=== PATIENT | male | born 1950 ===

== ENCOUNTER → 2017-10-01 13:51 | Outpatient (CLI) | payer OTHER, MEDICARE, SELFPAY ==
[2017-10-01 15:45] LABS: Add Manual Diff / Slide Review NO; Eosinophils Percent Auto 1.2 % (2-4); Hematocrit 40.2 % (41-53); Hemoglobin 13.8 g/dL (13.5-17.5); Lymphocytes Percent Auto 25.8 % (25-40); Mean Corpuscular HGB Conc 34.3 % (30-36); Mean Corpuscular Hemoglobin 30.6 PG (26-34); Mean Corpuscular Volume 89.3 fL (80-100); Monocytes Percent Auto 7.7 % (3-14); Neutrophils Absolute Auto 2300 /uL (3000-5900); Neutrophils Percent Auto 64.3 % (50-75); Platelet Count 250 X10^3/uL (150-400); Red Cell Distribution Width 12.8 % (11.6-14.8); White Blood Cell Count 3.6 X10^3/uL (4.5-11.0)
[2017-10-01 16:32] LABS: Alanine Aminotransferase 42 IU/L (21-72); Albumin 4.4 g/dL (3.5-5.0); Albumin Globulin Ratio 1.4 (1.0-2.8); Alkaline Phosphatase 31 U/L (38-126); Aspartate Aminotransferase 38 IU/L (17-59); Bilirubin Total 0.5 mg/dL (0.2-1.3); Blood Urea Nitrogen 16 mg/dL (9-20); Calcium 9.2 mg/dL (8.4-10.2); Carbon Dioxide 32 mmol/L (22-32); Chloride 100 mmol/L (98-107); Cholesterol 210 mg/dL (140-199); Estimated Glomerular Filt Rate > 60.0 mL/min (>60); Globulin 3.1 g/dL (1.7-4.1); Glucose 92 mg/dL (80-110); HDL Cholesterol 42 mg/dL (40-60); HEMOLYSIS < 15 (0-50); LDL Cholesterol Calculated 135 mg/dL (<100); Potassium 4.5 mmol/L (3.4-5.1); Sodium 142 mmol/L (137-145); Total Protein 7.5 g/dL (6.3-8.2); Triglycerides 163 mg/dL (35-150)
[2017-10-01 16:56] LABS: Thyroid Stimulating Hormone 1.21 uIU/mL (0.47-4.68)
[2017-10-01 16:57] LABS: Prostate Specific Antigen Scrn 0.595 ng/mL (0.1-4.0)
== END ==
PROVIDERS: PCP Family Medicine; Visit Provider Family Medicine
DX: E03.9 Hypothyroidism, unspecified (principal); Z12.5 Encounter for screening for malignant neoplasm of prostate
CPT/HCPCS: 36415; 80053; 80061; 84443; 85025; G0103

== ENCOUNTER → 2018-09-15 12:32 | Outpatient (CLI) | payer OTHER, MEDICARE, SELFPAY ==
[2018-09-15 13:20] LABS: Add Manual Diff / Slide Review NO; Basophils Absolute Auto 0 /uL (0-100); Basophils Percent Auto 0.9 % (0-2); Eosinophils Absolute Auto 200 /uL (0-450); Eosinophils Percent Auto 3.5 % (2-4); Hematocrit 40.2 % (41-53); Hemoglobin 13.7 g/dL (13.5-17.5); Lymphocytes Absolute Auto 1200 /uL (1100-4500); Lymphocytes Percent Auto 26.7 % (25-40); Mean Corpuscular Hemoglobin 30.8 PG (26-34); Mean Corpuscular Volume 90.5 fL (80-100); Monocytes Absolute Auto 400 /uL (0-900); Neutrophils Absolute Auto 2600 /uL (1500-7000); Neutrophils Percent Auto 58.9 % (50-75); Platelet Count 227 X10^3/uL (150-400); Red Blood Cell Count 4.44 X10^6/uL (4.5-5.9); Red Cell Distribution Width 13.6 % (11.6-14.8); White Blood Cell Count 4.4 X10^3/uL (4.5-11.0)
[2018-09-15 13:40] LABS: Alanine Aminotransferase 49 IU/L (21-72); Albumin 4.4 g/dL (3.5-5.0); Albumin Globulin Ratio 1.4 (1.0-2.8); Alkaline Phosphatase 30 U/L (38-126); BUN Creatinine Ratio 16.7 (6-22); Bilirubin Total 0.5 mg/dL (0.2-1.3); Blood Urea Nitrogen 15 mg/dL (9-20); Carbon Dioxide 28 mmol/L (22-32); Chloride 103 mmol/L (98-107); Cholesterol 207 mg/dL (140-199); Estimated Glomerular Filt Rate > 60.0 mL/min (>60); Globulin 3.2 g/dL (1.7-4.1); Glucose 105 mg/dL (80-110); HDL Cholesterol 29 mg/dL (40-60); Sodium 140 mmol/L (137-145); Total Protein 7.6 g/dL (6.3-8.2); Triglycerides 433 mg/dL (35-150)
[2018-09-15 13:47] LABS: Aspartate Aminotransferase 57 IU/L (17-59); HEMOLYSIS 61 (0-50); Potassium 4.3 mmol/L (3.4-5.1)
[2018-09-15 14:05] LABS: Prostate Specific Antigen Scrn 1.42 ng/mL (0.1-4.0)
[2018-09-15 14:25] LABS: Thyroid Stimulating Hormone 1.62 uIU/mL (0.47-4.68)
== END ==
PROVIDERS: PCP Family Medicine; Visit Provider Family Medicine
DX: Z12.5 Encounter for screening for malignant neoplasm of prostate (principal); Z13.1 Encounter for screening for diabetes mellitus; Z13.29 Encounter for screening for other suspected endocrine disorder; Z13.6 Encounter for screening for cardiovascular disorders; E78.2 Mixed hyperlipidemia
CPT/HCPCS: 36415; 80053; 80061; 84443; 85025; G0103

== ENCOUNTER → 2018-09-24 14:26 | Outpatient (CLI) | payer OTHER, MEDICARE, SELFPAY ==
--- NOTE | 2018-09-24 14:29 | DI.RAD.S_ITS ---
PROCEDURE: XR HIP W PEL IF DONE LT MIN 4V INDICATIONS: Pain TECHNIQUE: AP pelvis with lateral view(s) of the bilateral hip(s). COMPARISON: None. FINDINGS: Bones: No fractures or dislocations. Pelvic ring appears intact. No suspicious bony lesions. Soft tissues: The visualized bowel gas pattern is normal. No suspicious soft tissue calcifications. IMPRESSION: Mild degenerative hip joint osteoarthritis is symmetric bilaterally, and no trauma is found. Dictated by: Anibal Lima M.D. on 09/24/2018 at 16:34 Approved by: Anibal Lmia M.D. on 09/24/2018 at 16:34
--- NOTE | 2018-09-24 14:29 | DI.RAD.S_ITS ---
PROCEDURE: XR LUMBAR SPINE MIN 4V INDICATIONS: Pain TECHNIQUE: 5 views of the lumbar spine were acquired. COMPARISON: None. FINDINGS: Bones: 5 nonrib-bearing vertebrae are present. There is normal bony alignment. No vertebral body compression fractures. No suspicious bony lesions. Soft tissues: Overlying bowel gas pattern is normal. No suspicious soft tissue calcifications. Oblique images: No pars defects. IMPRESSION: Only a slight degree of degenerative disc disease is seen along the lumbosacral spine, and facet osteoarthritis is mild until the L4-L5 level is reached where it is mild to moderate and allows slight anterolisthesis of L4 on L5 (grade 1). No compression fracture seen. No spinal or foraminal stenosis is found. Dictated by: Anibal Lima M.D. on 09/24/2018 at 16:17 Approved by: Anibal Lima M.D. on 09/24/2018 at 16:18
== END ==
PROVIDERS: PCP Family Medicine; Visit Provider Family Medicine
DX: M54.9 Dorsalgia, unspecified (principal); M47.816 Spondylosis without myelopathy or radiculopathy, lumbar region; M43.16 Spondylolisthesis, lumbar region; M16.0 Bilateral primary osteoarthritis of hip
CPT/HCPCS: 72110; 73522

== ENCOUNTER → 2020-06-01 15:29 | Outpatient (CLI) | payer OTHER, MEDICARE, SELFPAY ==
[2020-06-01] MEDS: COVID-19 VACC #1, MRNA(MOD) 100 MCG/0.5 ML VIAL IM (15:38)
== END ==
PROVIDERS: PCP Registered Nurse; Visit Provider Internal Medicine
DX: Z23 Encounter for immunization (principal)
CPT/HCPCS: 0011A; 91301

== ENCOUNTER → 2020-06-29 14:43 | Outpatient (CLI) | payer OTHER, MEDICARE, SELFPAY ==
[2020-06-29 15:08] LABS: Add Manual Diff / Slide Review NO; Basophils Absolute Auto 0 /uL (0-100); Basophils Percent Auto 0.4 % (0-2); Eosinophils Absolute Auto 0 /uL (0-450); Hematocrit 40.9 % (41-53); Hemoglobin 13.9 g/dL (13.5-17.5); Lymphocytes Absolute Auto 1200 /uL (1100-4500); Lymphocytes Percent Auto 25.4 % (25-40); Mean Corpuscular HGB Conc 33.9 % (30-36); Mean Corpuscular Hemoglobin 31.4 PG (26-34); Mean Corpuscular Volume 92.7 fL (80-100); Monocytes Absolute Auto 300 /uL (0-900); Monocytes Percent Auto 6.8 % (3-14); Neutrophils Absolute Auto 3200 /uL (1500-7000); Neutrophils Percent Auto 66.4 % (50-75); Platelet Count 234 X10^3/uL (150-400); Red Blood Cell Count 4.41 X10^6/uL (4.5-5.9); Red Cell Distribution Width 13.9 % (11.6-14.8); White Blood Cell Count 4.8 X10^3/uL (4.5-11.0)
[2020-06-29 17:05] LABS: Alanine Aminotransferase 26 IU/L (<50); Albumin 4.5 g/dL (3.5-5.0); Albumin Globulin Ratio 1.5 (1.0-2.8); Alkaline Phosphatase 33 U/L (38-126); Aspartate Aminotransferase 35 IU/L (17-59); BUN Creatinine Ratio 15.6 (6-22); Bilirubin Total 0.5 mg/dL (0.2-1.3); Blood Urea Nitrogen 14 mg/dL (9-20); Calcium 9.5 mg/dL (8.4-10.2); Carbon Dioxide 30 mmol/L (22-32); Chloride 103 mmol/L (98-107); Cholesterol 186 mg/dL (140-199); Estimated Glomerular Filt Rate > 60.0 mL/min (>60); Globulin 3.1 g/dL (1.7-4.1); Glucose 109 mg/dL (80-110); HDL Cholesterol 48 mg/dL (40-60); HEMOLYSIS < 15 (0-50); LDL Cholesterol Calculated 119 mg/dL (<100); Potassium 4.2 mmol/L (3.4-5.1); Sodium 139 mmol/L (137-145); Total Protein 7.6 g/dL (6.3-8.2); Triglycerides 96 mg/dL (35-150)
== END ==
PROVIDERS: PCP Registered Nurse; Referring Provider Registered Nurse; Visit Provider Registered Nurse
DX: E78.2 Mixed hyperlipidemia (principal); F32.9 Major depressive disorder, single episode, unspecified; F41.9 Anxiety disorder, unspecified
CPT/HCPCS: 36415; 80053; 80061; 85025

== ENCOUNTER → 2020-06-29 15:00 | Outpatient (CLI) | payer OTHER, MEDICARE, SELFPAY ==
[2020-06-29] MEDS: COVID-19 VACC #2, MRNA(MOD) 100 MCG/0.5 ML VIAL IM (15:12)
== END ==
PROVIDERS: PCP Registered Nurse; Visit Provider Internal Medicine
DX: Z23 Encounter for immunization (principal)
CPT/HCPCS: 0012A; 91301

== ENCOUNTER → 2020-09-02 12:37 | Outpatient (CLI) | payer OTHER, MEDICARE, SELFPAY ==
--- NOTE | 2020-09-02 12:40 | DI.US.S_ITS ---
PROCEDURE: US ABDOMEN LIMITED INDICATIONS: palpable mass/possible lipoma of right/mid abdo TECHNIQUE: Real-time focused scanning was performed of the abdomen, with image documentation. COMPARISON: None. FINDINGS: Isoechoic subcutaneous soft tissue mass corresponding to the palpable abnormalities with the largest measuring 3.2 x 1.1 x 1.8 cm. Doppler assessment demonstrates no internal flow. IMPRESSION: Probable soft tissue lipoma; however differential would include both benign and malignant etiologies. If indicated, contrast-enhanced soft tissue MRI could be performed for further assessment. Dictated by: Tim Velasquez [facility] Interpreted: Sebastian Calles MD on 09/02/2020 at 13:22 Transcribed by: RABIA on 09/02/2020 at 13:23 Approved by: Sebastian Calles M.D. on 09/02/2020 at 13:44
== END ==
PROVIDERS: PCP Registered Nurse; Referring Provider Registered Nurse; Visit Provider Registered Nurse
DX: D17.9 Benign lipomatous neoplasm, unspecified (principal)
CPT/HCPCS: 76705

== ENCOUNTER → 2020-09-14 12:31 | Outpatient (CLI) | payer OTHER, MEDICARE, SELFPAY ==
--- NOTE | 2020-09-14 12:32 | DI.MRI.S_ITS ---
PROCEDURE: MR ABDOMEN WO/W CON INDICATIONS: abdominal mass TECHNIQUE: Coronal HASTE, axial 2D FLASH in- and yqa-ie-lcmod; axial breath-hold T2 FSE. Dynamic axial VIBE during the administration of contrast; post-contrast coronal VIBE or 2D FLASH with fat saturation from the hepatic dome to the iliac crests. Optional diffusion weighted imaging and ADC may be performed. COMPARISON: [facility], US, US ABDOMEN LIMITED, 09/02/2020, 12:00. [facility], CT, CT ABDOMEN PELVIS WITH CONTRAST, 04/19/2018, 16:53. [facility], CT, CT ABDOMEN PELVIS WITH CONTRAST, 03/18/2017, 12:24. FINDINGS: Image quality: Good. Lung bases: No basal pleural effusions. Heart size is normal. Solid organs: Liver is normal in size. No focal lesion seen. Gallbladder is unremarkable. Biliary system is non dilated. Pancreas is normal in morphology. Spleen is normal in size and enhancement. No adrenal nodules. No hydronephrosis seen. Nodes and vessels: No retroperitoneal or mesenteric adenopathy by size criteria. Aorta and inferior vena cava are normal in size. Bowel and peritoneum: Unenhanced bowel loops are normal in caliber. No free fluid. Bones and soft tissues: Skin marker overlies the right upper paramedian abdomen, (5/21). No mass is seen. No fluid collection. The ribs appear symmetric. No ventral hernias. Bone marrow is normal in overall signal. IMPRESSION: No suspicious enhancement in the region of the abdominal wall in the right upper abdomen. Suspected lipoma is not well seen. Targeted ultrasound may be beneficial for Dictated by: Dm Orellana M.D. on 09/14/2020 at 14:59 Approved by: Dm Orellana M.D. on 09/14/2020 at 15:07
== END ==
PROVIDERS: PCP Registered Nurse; Referring Provider Registered Nurse; Visit Provider Registered Nurse
DX: D17.79 Benign lipomatous neoplasm of other sites (principal)
CPT/HCPCS: 74183

== ENCOUNTER → 2020-09-26 14:25 | Outpatient (CLI) | payer OTHER, MEDICARE, SELFPAY ==
[2020-09-26 15:40] LABS: Add Manual Diff / Slide Review NO; Basophils Absolute Auto 0 /uL (0-100); Basophils Percent Auto 0.2 % (0-2); Eosinophils Absolute Auto 0 /uL (0-450); Eosinophils Percent Auto 0.6 % (2-4); Hematocrit 41.5 % (41-53); Hemoglobin 14.3 g/dL (13.5-17.5); Lymphocytes Absolute Auto 800 /uL (1100-4500); Lymphocytes Percent Auto 17.4 % (25-40); Mean Corpuscular HGB Conc 34.4 % (30-36); Monocytes Absolute Auto 400 /uL (0-900); Monocytes Percent Auto 8.5 % (3-14); Neutrophils Absolute Auto 3200 /uL (1500-7000); Neutrophils Percent Auto 73.3 % (50-75); Platelet Count 211 X10^3/uL (150-400); Red Blood Cell Count 4.46 X10^6/uL (4.5-5.9); Red Cell Distribution Width 14.3 % (11.6-14.8); White Blood Cell Count 4.4 X10^3/uL (4.5-11.0)
[2020-09-26 16:15] LABS: Free T4, Direct Thyroxine 0.96 ng/dL (0.78-2.19)
[2020-09-26 16:29] LABS: Thyroid Stimulating Hormone 0.297 uIU/mL (0.47-4.68)
== END ==
PROVIDERS: PCP Registered Nurse; Referring Provider Registered Nurse; Visit Provider Registered Nurse
DX: D64.9 Anemia, unspecified (principal); F41.8 Other specified anxiety disorders
CPT/HCPCS: 36415; 84439; 84443; 85025

== ENCOUNTER → 2020-10-24 15:09 | Outpatient (CLI) | payer OTHER, MEDICARE, SELFPAY ==
[2020-10-24 16:11] LABS: COVID19 -Nasal RAPID Negative (Negative)
== END ==
PROVIDERS: PCP Registered Nurse; Visit Provider Surgery
DX: Z20.822 Contact with and (suspected) exposure to COVID-19 (principal)
CPT/HCPCS: 87635; C9803

== ENCOUNTER 2020-10-25 12:09 | Day surgery (SDC) | payer OTHER, MEDICARE, SELFPAY ==
[2020-10-20 13:46] VITALS: BMI 24.7
[2020-10-25] VITALS (9 sets, daily range): BP systolic 85–155; BP diastolic 21–89; PULSE 47–100; RESP 14–20; TEMP 36.6–36.9; O2SAT 94–100; BMI 24.7
--- NOTE | 2020-10-25 | PATH_ITS ---
[facility] Accession Number: [id number] . 01 Material submitted: . flank - LEFT FLANK SOFT TISSUE MASSES . 01 Diagnosis: Left Flank, Excision: Mature adipose tissue, consistent with lipoma; see note. . Note: There are focal increased vessels associated with mature adipose tissue; therefore, an additional consideration includes a benign angiolipoma variant. MRV 10/28/2020 1026 Local . 01 Electronically signed: . Adilson Child MD, Dermatopathologist NPI- [id number] . 01 Gross description: . The specimen is received in formalin, labeled soft tissue mass and consists of multiple gooden-yellow fragments of adipose tissue measuring 6.0 x 6.0 x 2.5 cm in aggregate. Sectioning reveals gooden-yellow lobulated cut surfaces. Elevator Inspector sections are submitted in cassettes A1-A6. ([id number]) /MRV 10/26/2020 0937 Local . 01 Pathologist provided ICD-10: D17.9 . 01 CPT . 561808 Performed at: 01 [facility] [address] [place] [address], [place], [place] [id number] MD Richy Boston MD Phone: [phone]
[2020-10-25] MEDS: LACTATED RINGERS 1,000 ML 42 ML IV ×2 (12:34→16:35)
--- NOTE | 2020-10-25 16:10 | PM.PREOP ---
Pre-operative Note Interval Note History & Physical reviewed/Exam performed by Physician: Yes Changes to H&P: No
[2020-10-25] MEDS: CEFAZOLIN 1 GM VIAL 2 GM IV (16:39)
--- NOTE | 2020-10-25 16:47 | SUR.OPER ---
Right Lateral approx 45 degree on a garrett bag to reach several operative sites, head on pillow, supported with gel pads and pillows, gel axillary roll in place, bottom leg bent with gel pad under knee to foot, upper leg straight and supported with pillows. Upper arm supported by pillows and secured over bottom arm to padded arm board. Safety belt at hip, tape over blanket lower legs.
[2020-10-25] MEDS: BUPIVACAINE 0.25% (PF) VIAL 60 ML INJ (16:59)
--- NOTE | 2020-10-25 17:45 | P.OP_ITS ---
Operative Date/Time/Diagnoses Date of procedure: 10/25/20 Time of procedure: 17:45 Pre-op diagnosis: soft tissue masses Post-op diagnosis: same Procedure & Clinicians Procedure: excision of soft tissue masses x 4 Same procedure as scheduled: Yes Indications: enlarging painful soft tissue masses on left flank and epigastric region. Surgeon: Venu Amaral Click Yes if Unassisted: Yes Anesthesia Type: General Operative Notes Findings: consistent with lipoma Specimen(s): other (soft tissue masses) Estimated Blood Loss (mL): 20 Procedure in detail: Patient was brought to the operating room placed supine on table. Bilateral lower extremity compression devices were applied. Sedation was induced. Time-out was performed. Patient was then positioned in the right lateral decubitus position using the garrett bag. Prepped and draped sterile fashion. Received Ancef prior to skin incision. There were total of 4 soft tissue masses involving the left flank and epigastric region. They were superficial and mobile. Incision was made over each masses subcutaneous tissue was divided and the mass was encountered and dissected out of the surrounding tissue and off the underlying fascia. Masses were approximately 3 cm each. Appearance was consistent with lipoma. Hemostasis was achieved. The subcu taneous tissue was reapproximated with Vicryl suture sealed with Dermabond. Procedure was carried out in the same fashion for all for lesions. They were passed off the field as specimen. Patient emerged from anesthesia was transferred to recovery room in stable condition. Complications: none Post-operative Condition: stable Disposition: same day surgery
== END 2020-10-25 18:10 | disposition home or self-care (01) ==
PROVIDERS: PCP Registered Nurse; Referring Provider Surgery; Visit Provider Surgery
PROC: (CPT 21931; principal; 2020-10-25 09:15)
DX: D17.1 Benign lipomatous neoplasm of skin and subcutaneous tissue of trunk (principal)
CPT/HCPCS: 21931 ×4; 82962; J0690; J2250; J2704; J3010

== ENCOUNTER → 2020-11-29 16:32 | Outpatient (CLI) | payer OTHER, MEDICARE, SELFPAY ==
[2020-11-29 17:30] LABS: Free T3, Triiodothyronine Free 3.79 pg/mL (2.77-5.27); Free T4, Direct Thyroxine 0.93 ng/dL (0.78-2.19)
[2020-11-29 17:43] LABS: Thyroid Stimulating Hormone 0.614 uIU/mL (0.47-4.68)
[2020-11-30 18:42] LABS: Anti Thyroglobulin Antibody <1.0 IU/mL (0.0-0.9); Thyroid Peroxidase Antibodies <8 IU/mL (0-34)
== END ==
PROVIDERS: PCP Registered Nurse; Referring Provider Registered Nurse; Visit Provider Registered Nurse
DX: R89.9 Unspecified abnormal finding in specimens from other organs, systems and tissues (principal)
CPT/HCPCS: 36415; 84439; 84443; 84481; 86376; 86800

== ENCOUNTER → 2021-06-15 13:53 | Outpatient (CLI) | payer OTHER, MEDICARE, SELFPAY ==
[2021-06-15 14:31] LABS: Alanine Aminotransferase 33 IU/L (<50); Albumin 4.5 g/dL (3.5-5.0); Albumin Globulin Ratio 1.5 (1.0-2.8); Alkaline Phosphatase 28 U/L (38-126); Aspartate Aminotransferase 43 IU/L (17-59); BUN Creatinine Ratio 16.5 (6-22); Bilirubin Total 0.6 mg/dL (0.2-1.3); Blood Urea Nitrogen 16 mg/dL (9-20); Calcium 9.1 mg/dL (8.4-10.2); Carbon Dioxide 28 mmol/L (22-32); Chloride 105 mmol/L (98-107); Cholesterol 174 mg/dL (140-199); Estimated Glomerular Filt Rate > 60.0 mL/min (>60); Globulin 3.1 g/dL (1.7-4.1); Glucose 105 mg/dL (80-110); HDL Cholesterol 40 mg/dL (40-60); HEMOLYSIS < 15 (0-50); LDL Cholesterol Calculated 115 mg/dL (<100); Potassium 4.1 mmol/L (3.4-5.1); Sodium 139 mmol/L (137-145); Total Protein 7.6 g/dL (6.3-8.2); Triglycerides 95 mg/dL (35-150)
[2021-06-15 15:32] LABS: TSH w/ Reflex to FT4 1.69 uIU/mL (0.47-4.68)
[2021-06-15 16:45] LABS: Creatinine Urine Random 198.1 mg/dL
[2021-06-15 16:52] LABS: Microalbumi Creatinin Ratio Ur 5.5 ug/mg CR (<30); Microalbumin Urine Random 1.1 mg/dL (0-1.6)
== END ==
PROVIDERS: Referring Provider Family Medicine; Visit Provider Family Medicine
DX: D64.9 Anemia, unspecified; D72.819 Decreased white blood cell count, unspecified; E03.9 Hypothyroidism, unspecified; E78.2 Mixed hyperlipidemia; I10 Essential (primary) hypertension
CPT/HCPCS: 36415; 80053; 80061; 82043; 82570; 84443

== ENCOUNTER → 2021-06-22 14:36 | Outpatient (CLI) | payer OTHER, MEDICARE, SELFPAY ==
[2021-06-22 15:33] LABS: Bilirubin Urine UA NEGATIVE (NEGATIVE); Color Urine UA YELLOW; Glucose Urine UA NEGATIVE (Negative); Ketones Urine UA NEGATIVE (NEGATIVE); Leukocyte Esterase Urine UA 1+ (NEGATIVE); Nitrite Urine UA NEGATIVE (Negative); Occult Blood Urine UA TRACE-INTACT (Negative); Protein Urine UA NEGATIVE (Negative); Urobilinogen Urine UA 0.2 E.U./dL (0.2)
[2021-06-22 15:34] LABS: Appearance Urine UA Slightly Cloudy
[2021-06-22 15:49] LABS: Amorphous Sediment Urine 1+; Bacteria Urine Few (2-10); RBC Urine 1-5/HPF (0-5/HPF); Squamous Epithelial Cell Urine 1-5 /HPF (0-5/HPF); WBC Urine 1-5/HPF (0-5/HPF)
[2021-06-22 15:50] LABS: Culture Indicated Urine Specimen Cultured
[2021-06-22 16:18] LABS: Prostate Specific Antigen Scrn 1.46 ng/mL (0.1-4.0)
[2021-06-22 17:02] LABS: Urine N gonorrhoeae NOT DETECTED
[2021-06-22 17:19] LABS: Urine Chlamydia NOT DETECTED
[2021-06-23 07:44] LABS: RPR Screen Non Reactive (Non Reactive)
== END ==
PROVIDERS: PCP Family Medicine; Referring Provider Family Medicine; Visit Provider Family Medicine
DX: R30.0 Dysuria (principal); Z12.5 Encounter for screening for malignant neoplasm of prostate
CPT/HCPCS: 36415; 81001; 86592; 87086; 87491; 87591; G0103

== ENCOUNTER → 2021-06-30 13:40 | Outpatient (CLI) | payer OTHER, MEDICARE, SELFPAY ==
--- NOTE | 2021-06-30 13:42 | DI.RAD.S_ITS ---
PROCEDURE: XR SHOULDER RT MIN 2V INDICATIONS: chronic right shoulder pain TECHNIQUE: 4 views of the shoulder were acquired. COMPARISON: [facility], , SHOULDER MINIMUM 2VIEW RIGHT, 07/15/2013, 11:23. FINDINGS: Bones: No fractures or dislocations. No suspicious bony lesions. Visualized ribs appear intact. Soft tissues: No suspicious soft tissue calcifications. IMPRESSION: No radiographic abnormalities. Dictated by: Ghazala Solano M.D. on 06/30/2021 at 15:09 Approved by: Ghazala Solano M.D. on 06/30/2021 at 15:10
== END ==
PROVIDERS: PCP Family Medicine; Referring Provider Family Medicine; Visit Provider Family Medicine
DX: M25.511 Pain in right shoulder (principal)
CPT/HCPCS: 73030

== ENCOUNTER → 2021-07-12 15:30 | Outpatient (CLI) | payer OTHER, MEDICARE, SELFPAY ==
[2021-07-12 16:03] LABS: COVID19 -Nasal RAPID Negative (Negative)
== END ==
PROVIDERS: Family Provider Family Medicine; PCP Family Medicine; Visit Provider Surgery
DX: Z01.812 Encounter for preprocedural laboratory examination (principal); Z20.822 Contact with and (suspected) exposure to COVID-19
CPT/HCPCS: 87635; C9803

== ENCOUNTER 2021-07-13 11:52 | Day surgery (SDC) | payer OTHER, MEDICARE, SELFPAY ==
--- NOTE | 2021-07-13 | PATH_ITS ---
[facility] Accession Number: [id number] . 01 Material submitted: . colon - DESCENDING COLON POLYP . 02 Diagnosis: Descending Colon Polyp: Superficial portion of colorectal mucosa with no significant histomorphologic abnormality, most suggestive of polypoid redundancy. Additional levels through the block are nocontributory. MRV 07/19/2021 1352 Local . 02 Electronically signed: . Silvia Amaya MD, Pathologist NPI- [id number] . 01 Gross description: . DESCENDING COLON POLYP: Received in formalin is 1 fragment(s) of gooden, soft tissue measuring 0.6 x 0.2 x 0.2 cm submitted entirely in 1 cassette(s) /JAIME 07/15/2021 0002 Local . 02 Pathologist provided ICD-10: Z86.010 . 02 CPT . 744053 Specimen Comment: A courtesy copy of this report has been sent to [phone] Performed at: 01 [facility] [address] [facility], [place], [place] [id number] MD Richy Boston MD Phone: [phone] Performed at: 02 [facility] [address] [place], [place] [id number] MD Rut Pichardo MD Phone: [phone]
[2021-07-13 12:16] VITALS: BP 127/75; PULSE 76; RESP 16; TEMP 37.2; O2SAT 98; BMI 25.0
[2021-07-13] MEDS: LACTATED RINGERS 1,000 ML 150 ML IV (12:39)
[2021-07-13] MEDS: fentaNYL 250 MCG/5 ML INJ 75 MCG IV (13:09)
[2021-07-13] MEDS: MIDAZOLAM 5 MG/5 ML VIAL 4 MG IV (13:09)
--- NOTE | 2021-07-13 13:26 | PM.OP.COLON ---
Operative Date/Time/Diagnoses Date of procedure: 07/13/21 Time of procedure: 13:26 Pre-op diagnosis: Colon cancer screening Post-op diagnosis: same Procedure & Clinicians Study performed: Colonoscopy Same procedure as scheduled: Yes Surgeon: Benjie Marinelli Procedure Notes Procedure in detail: Procedure: The patient was brought to the endoscopy suite, placed in left lateral decubitus position. The patient was connected to monitoring devices. A time-out was performed. Sedation was administered. Once the patient was adequately sedated, a digital rectal exam was performed and was normal. The scope was then inserted and advanced to the cecum where the appendiceal orifice was identified and photographed. The scope was then slowly withdrawn over greater than 6 minutes. Mucosa was thoroughly inspected. There was 1 small polyp roughly 4 mm descending colon with a forceps. The scope was retroflexed in the rectum. No abnormalities were noted. The scope was straightened and removed. The patient was awakened and brought to recovery. Versed: 4 mg Fentanyl: 75 mcg EBL: 2 mL Findings: 4 mm polyp in the descending colon Scope withdrawal time: 11 Sedation minutes: 17 Post-procedure Recommendations: Will call with biopsy results Disposition: PACU
[2021-07-13 13:30] VITALS: BP 107/59; PULSE 63; RESP 13; TEMP 36.7; O2SAT 96
[2021-07-13 13:35] VITALS: BP 95/53; PULSE 59; RESP 11; O2SAT 97
[2021-07-13 13:38] VITALS: BP 118/64; PULSE 69; RESP 11; O2SAT 97
[2021-07-13 13:40] VITALS: BP 113/68; PULSE 59; RESP 13; O2SAT 97
[2021-07-13 13:46] VITALS: BP 126/70; PULSE 67; RESP 11; TEMP 36.2; O2SAT 99
== END 2021-07-13 14:15 | disposition home or self-care (01) ==
PROVIDERS: Family Provider Family Medicine; PCP Family Medicine; Referring Provider Surgery; Visit Provider Surgery
PROC: 0DJD8ZZ Inspection of Lower Intestinal Tract, Via Natural or Artificial Opening Endoscopic (ICD-10-PCS; CPT 45378; principal; 2021-07-13 13:45)
DX: Z12.11 Encounter for screening for malignant neoplasm of colon (principal)
CPT/HCPCS: 45380; 99152; J2250; J3010

== ENCOUNTER → 2021-07-24 16:00 | Outpatient (CLI) | payer OTHER, MEDICARE, SELFPAY ==
[2021-07-24 17:03] LABS: Appearance Urine UA CLEAR; Bilirubin Urine UA NEGATIVE (NEGATIVE); Color Urine UA YELLOW; Glucose Urine UA NEGATIVE (Negative); Ketones Urine UA NEGATIVE (NEGATIVE); Leukocyte Esterase Urine UA TRACE (NEGATIVE); Nitrite Urine UA NEGATIVE (Negative); Occult Blood Urine UA NEGATIVE (Negative); Protein Urine UA NEGATIVE (Negative); Specific Gravity Urine UA 1.015 (1.000-1.035); Urobilinogen Urine UA 0.2 E.U./dL (0.2); pH Urine UA 7.5 (4.5-8.0)
[2021-07-24 17:14] LABS: Bacteria Urine Occasional (0-1); Culture Indicated Urine Specimen Cultured; RBC Urine None Seen (0-5/HPF); WBC Urine 5-10/HPF (0-5/HPF)
== END ==
PROVIDERS: Family Provider Family Medicine; PCP Family Medicine; Referring Provider Surgery; Visit Provider Surgery
DX: R10.2 Pelvic and perineal pain (principal)
CPT/HCPCS: 81001; 87086; 99214

== ENCOUNTER → 2021-07-28 13:42 | Outpatient (CLI) | payer OTHER, MEDICARE, SELFPAY ==
--- NOTE | 2021-07-28 13:46 | DI.CT.S_ITS ---
PROCEDURE: CT ABDOMEN PELVIS W CON INDICATIONS: Pelvic pain TECHNIQUE: After the administration of oral and intravenous contrast, axial sections were acquired from the lung bases to the pubic symphysis. Coronal and sagittal reformats were performed. For radiation dose reduction, the following was used: automated exposure control, adjustment of mA and/or kV according to patient size. COMPARISON:[facility], , MR ABDOMEN WO/W CON, 09/14/2020, 12:41. FINDINGS: Image quality: Excellent. Lung bases: Unremarkable. Heart: No significant findings. ABDOMEN: Liver: Unremarkable. Gallbladder: Unremarkable. Biliary ducts: Unremarkable. Pancreas: Unremarkable. Spleen: Unremarkable. Adrenal Glands: Unremarkable. Kidneys and Ureters: Bezq-ic-xtquggts left hydronephrosis. No right hydronephrosis. Possible parapelvic cyst within the superior pole left kidney. Stomach and Bowel: Stomach, small bowel loops, and colon are unremarkable. Normal appendix Peritoneum: No abnormal intraperitoneal fluid. No free air. Ventral Wall: No hernia. Abdominal Nodes: No retroperitoneal or mesenteric adenopathy by size criteria. Vessels: Aorta and inferior vena cava are normal in size. PELVIS: Pelvic Organs: Unremarkable. Bladder: Urinary bladder is mildly diffusely thickened. Superimposed mild focal thickening of the left posterior urinary bladder adjacent to the left ureterovesical junction. Pelvic Nodes: No enlarged lymph nodes. Miscellaneous: No inguinal hernias are seen. Bones: Unremarkable. IMPRESSION: 1. Diffuse urinary bladder thickening, consistent with cystitis 2. Focal thickening of the left posterior urinary bladder associated with mild left ureteral dilatation and mild to moderate left hydronephrosis, possibly indicating neoplasm. Cystoscopy is recommended for further assessment. 3. Normal appendix. Dictated by: Garrett Dominguez M.D. on 07/28/2021 at 15:55 Approved by: Garrett Dominguez M.D. on 07/28/2021 at 16:54
[2021-07-28 14:17] LABS: BUN Creatinine Ratio 15.8 (6-22); Blood Urea Nitrogen 15 mg/dL (9-20); Estimated Glomerular Filt Rate > 60 mL/min (>60)
== END ==
PROVIDERS: Family Provider Family Medicine; PCP Family Medicine; Referring Provider Surgery; Visit Provider Surgery
DX: R10.2 Pelvic and perineal pain (principal); N13.30 Unspecified hydronephrosis; R30.0 Dysuria
CPT/HCPCS: 36415; 74177; 81001; 82565; 84520; 87086; Q9967

== ENCOUNTER → 2021-07-28 15:26 | Outpatient (CLI) | payer OTHER, MEDICARE, SELFPAY ==
[2021-07-28 16:15] LABS: Appearance Urine UA CLEAR; Bilirubin Urine UA NEGATIVE (NEGATIVE); Color Urine UA YELLOW; Glucose Urine UA NEGATIVE (Negative); Ketones Urine UA NEGATIVE (NEGATIVE); Leukocyte Esterase Urine UA TRACE (NEGATIVE); Nitrite Urine UA NEGATIVE (Negative); Occult Blood Urine UA NEGATIVE (Negative); Protein Urine UA NEGATIVE (Negative); Specific Gravity Urine UA <=1.005 (1.000-1.035); Urobilinogen Urine UA 0.2 E.U./dL (0.2)
[2021-07-28 16:31] LABS: Bacteria Urine None Seen; Culture Indicated Urine Specimen Cultured; RBC Urine 0-1/HPF (0-5/HPF); Squamous Epithelial Cell Urine 0-1 /HPF (0-5/HPF); WBC Urine 5-10/HPF (0-5/HPF)
== END ==
PROVIDERS: Family Provider Family Medicine; PCP Family Medicine; Referring Provider Family Medicine; Visit Provider Family Medicine
DX: R30.0 Dysuria (principal)
CPT/HCPCS: 81001; 87086

== ENCOUNTER 2021-08-31 14:30 | Outpatient (RCR) | payer OTHER, MEDICARE, SELFPAY ==
--- NOTE | 2021-07-13 12:21 | PM.PREOP ---
Pre-operative Note COVID-19 COVID-19 status: Negative Result date/Date tested (Pos, Neg/Pending): 07/12/21 Interval Note History & Physical reviewed/Exam performed by Physician: Yes Changes to H&P: No ASA Class (for procedural sedation): II
--- NOTE | 2021-08-10 17:23 | PT.OIE ---
Current Diagnoses Pain in right shoulder (08/10/21) Past Medical History (Last Reviewed 07/31/21 @ 16:03 by Perez Larose RN) Abnormal laboratory test result Anemia, unspecified Anxiety (07/27/16) Depression (07/27/16) Depression Hemorrhoid Hyperlipidemia Hypothyroidism Irritable bowel syndrome Lipoma Palpable mass Skin problem Vision disorder Past Surgical History (Last Reviewed 07/31/21 @ 16:03 by Perez Larose RN) Lipoma Visit Care Team Role Provider Type Jori Valencia MD Attending Provider Physician Family Provider Primary Care Provider Referring Provider Specialty: Family Practice Address: [address] [place] [address] Email: [email or web address] Physical Therapy Initial Evaluation PT-OP-A Visit Information Start: 08/08/21 08:04 Freq: Status: Active Protocol: Document 08/10/21 13:51 [facility] (Rec: 08/10/21 14:21 SAK [id number]) Out-Patient Physical Therapy Visit Information Visit Information Visit Type Initial Evaluation Visit Start Time 13:45 Visit Stop Time 14:38 Total Visit Minutes 55 Visit Number 1 Evaluation Information Evaluation Date 08/10/21 PT-OP-B Current Condition Start: 08/08/21 08:04 Freq: Status: Active Protocol: Document 08/10/21 13:51 [facility] (Rec: 08/10/21 14:21 SAK [id number]) Current Condition History of Current Condition Onset Date 3-4 months Current Complaints right shoulder pain History of Current Condition on and off pain with no known cause, denies injury. Reports tingling and numbness at night to fingers. Right handed . No problem at work work unless has to squeeze/carry object. Difficulty/painful reaching behind his back. Stopped doing exercise routine including weight-lifting due to pain. No ice, heat, or medications. 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 Prior Treatments and Tests x-ray: negative Future Testing and Treatments Planned Nothing planned at this time. Patient does not have follow- up scheduled with physician; patient encouraged to schedule 6-8 weeks out. Treatment Goals Patient/Caregiver Goals Decrease right shoulder pain, be able to reach behind his back, carry, sleep, and reach without symptoms Prior Functional Status Baseline Function- ADL's Independent Baseline Function- Work/School works indep, no pain Baseline Function- Recreation/Hobbies gardening ok Current Functional Impairments (Reported) Functional Limitations- ADL's painful to reach behind his back or apply pressure with lifting Functional Limitations- Mobility/Gait indep Functional Limitations- Work/School indep but pain if has to carry object Functional Limitations- Recreation/ not lifting weights or doing Hobbies any exercise program due to right shoulder pain Personal Factors Other Personal Factors That May Effect PMH: HTN, depression, anxiety Therapy/Recovery , IBS, history of colon polyps PT-OP-C Subjective Start: 08/08/21 08:04 Freq: Status: Active Protocol: Document 08/10/21 13:51 [facility] (Rec: 08/10/21 17:19 [facility] [id number]) Patient Questionnaires Quick Dash- Upper Extremity Quick Dash UE Score 33 OP-PT Pain Assessment Pain Assessment Grid Paper Pain Assessment Grid Completed Yes Location right shoulder Pain Location Details see pain chart Intensity 8 Scale Used Numeric (0 - 10) Description Aching,Pinching,Tender, Tightness Description- Other n/t AT NIGHT Pain Aggravating Factors Activity,Exercise Pain Alleviating Factors None Pain Behaviors Pain Behaviors Facial Grimacing,Guarding, Wincing PT-OP-H Neuro Start: 08/08/21 08:04 Freq: Status: Active Protocol: Document 08/10/21 13:51 [facility] (Rec: 08/10/21 17:19 [facility] [id number]) Sensation Evaluation Gross Sensation Gross Sensation Right LE Impaired Sensation Description Tingling Comments Summary Comments at night in bed PT-OP-J Posture/Palpation/Skin Start: 08/08/21 08:04 Freq: Status: Active Protocol: Document 08/10/21 13:51 [facility] (Rec: 08/10/21 17:19 [facility] [id number]) Posture Evaluation Position Sitting Head/C-Spine Posture Forward Head Shoulder Posture (L) Rounded,(R) Rounded Scapula Posture (R) Protracted Arm Posture (L) Internally Rotated,(R) Internally Rotated Palpation Assessment Location subscap Palpation Findings Tenderness UT Palpation Findings Soft Tissue Tightness Palpation Details hai RC insertion Palpation Findings Tenderness PT-OP-K Range of Motion Start: 08/08/21 08:04 Freq: Status: Active Protocol: Document 08/10/21 13:51 [facility] (Rec: 08/10/21 17:19 [facility] [id number]) Cervical Spine Range of Motion Cervical Spine Active Testing Position Sitting Flexion 50 Comments inc right shoulder pain with flex and left sidebending ( tight pulling pain) Shoulder Goniometric Range of Motion Shoulder right Shoulder ROM WFL No Testing Position Sitting Flexion 160 Extension 10 Abduction 155 External Rotation at 90 degrees 70 Abduction Left Shoulder ROM WFL Yes Shoulder ROM Limitations Shoulder ROM Limitations Pain Elbow/Forearm Range of Motion Elbow/Forearm hai Elbow/Forearm ROM WFL Yes PT-OP-L Special Tests Start: 08/08/21 08:04 Freq: Status: Active Protocol: Document 08/10/21 13:51 [facility] (Rec: 08/10/21 17:21 [facility] [id number]) Special Tests Shoulder Special Tests Speed's Biceps Test Results negative right Elevation Impingement Test Results positive right Drop Arm Rotator Cuff Test Results negative right Belly Press Test Results positive right PT-OP-M Strength Start: 08/08/21 08:04 Freq: Status: Active Protocol: Document 08/10/21 13:51 [facility] (Rec: 08/10/21 17:19 [facility] [id number]) Shoulder Strength Shoulder Manual Muscle Testing Right Flexion 3+ Fair+ Extension 4 Good Abduction (C5) 3+ Fair+ External Rotation 3+ Fair+ Internal Rotation 3+ Fair+ Comments limited by pain Left Flexion 5 Normal Extension 5 Normal Abduction (C5) 5 Normal External Rotation 4 Good Internal Rotation 5 Normal Elbow/Forearm Strength Elbow and Forearm Manual Muscle Testing Right Flexion (C6) 4 Good Extension (C7) 4 Good Comments limited by pain right shoulder Left Flexion (C6) 5 Normal Extension (C7) 5 Normal PT-OP-Q Treatments Start: 08/08/21 08:04 Freq: Status: Active Protocol: Document 08/10/21 13:51 [facility] (Rec: 08/10/21 17:19 [facility] [id number]) Self-Care/Home Management Treatment Education Patient Education Home Exercise Program,Pain Management,Posture Other Education use of ice 10 min 2x/day to decrease pain and inflammation postural correction PT-OP-R Modalities Start: 08/08/21 08:04 Freq: Status: Active Protocol: Document 08/10/21 13:51 [facility] (Rec: 08/10/21 17:19 [facility] [id number]) Hot Pack/Cold Pack Treatment Cold Pack Location right shoulder Patient Position Supine Treatment Duration (minutes) 10 Patient Tolerance Good PT-OP-T Assessment and Plan Start: 08/08/21 08:04 Freq: Status: Active Protocol: Document 08/10/21 13:51 [facility] (Rec: 08/10/21 17:19 [facility] [id number]) Physical Therapy Assessment Rehab Potential Rehabilitation Potential Good Evaluation Complexity Number of Personal Factors/Comorbidities 1-2 Number of Body Systems Impaired 3 Clinical Presentation at Evaluation Evolving Impairments Impairments Functional Activities,Pain,ROM ,Strength Goals Three Impairment Not able to tolerate usual ex program, dec right shld ROM and strength Short Term Goal (STG) Instruct in progressive HEP for purposes of right shoulder ROM and strength STG Duration 09/10/21 Security Public Safety Officer Goal (LTG) Patient to be independent and compliant with HEP and demonstrate normal right shoulder ROM and strength to allow him to return to all functional activities with right UE. Two Impairment Decreased functional use right UE Impairment Quickdash disability index score 33% Security Public Safety Officer Goal (LTG) Decrease Quickdash score to no greater than 10% as measure of improved functional use with activities in the home and at work. LTG Duration 10/09/21 One Impairment pain right shoulder as high as 8/10, numbness and tingling at night Impairment limits functional use, interrupts sleep Short Term Goal (STG) Decrease pain to no greater than 4/10 with all usual activities STG Duration 09/10/21 Security Public Safety Officer Goal (LTG) Decrease pain to no greater than 2/10 with all usual activities, no numbness or tingling symptoms interrupting sleep at night. LTG Duration 10/09/21 Assessment Summary Assessment Patient presents with function -limiting pain right shoulder with no known injury. x-rays were negative. Signs and symptoms consistent with rotator cuff involvement with decreased muscle bulk supraspinatus and infraspinatus, positive belly press test, pain to palpation right rotator cuff insertion. Patient unable to identify any injury or activity causing the pain and neuro symptoms but may be due to overuse injury with right UE being his dominant hand. He is unable to reach behind his back without pain, has difficulty carrying objects, his right shoulder strength and ROM is diminshed. He previously lifted weights for exercise but stopped this due to pain. Incorrect form with exercise may also have been a contributing factor and feel it is apropriate to review correct performance of ex as he is able to tolerate. Feel he would benefit from physical therapy to decrease his pain, improve his ROM, strength, and functional use of his right UE. Physical Therapy Plan Frequency and Duration Frequency of Treatment 2x/Week Duration of Treatment 8 week Plan of Care Start Date 08/10/21 Plan of Care End Date 10/09/21 Therapeutic Interventions Therapeutic Interventions Aquatic Therapy,Home Exercise Program,Joint Mobilizations, Manual Therapy,Neuromuscular Re-education,Patient/Caregiver Education,Self-Care/Home Management,Soft Tissue Mobilization,Taping, Therapeutic Activities, Therapeutic Exercises Modalities Cold Pack/Ice Massage,Electric Stimulation,Hot Packs, Infrared Therapy,Iontophoresis ,Ultrasound Next Visit Focus/Plan Next Note Type Treatment Note Next Visit Plan Review HEP. Table slide, pulleys, wand exercises for ROM. Row, shld ext, IR/ER , flex with theraband as tolerated standing or supine. If theraband ex not tolerated , try isometric ex. Manual therapy and modalities as indicated for pain. Consider kinesiotape for shoulder support, pain management.
--- NOTE | 2021-08-10 17:23 | PT.OPPOC ---
Physical, Occupational & Speech Therapy At [facility] Current Diagnoses Pain in right shoulder (08/10/21) Visit Care Team Role Provider Type Jori Valencia MD Attending Provider Physician Family Provider Primary Care Provider Referring Provider Specialty: Family Practice Address: [address] [place] [address], [id number] Email: [email or web address] Plan Of Care PT-OP-T Assessment and Plan Start: 08/08/21 08:04 Freq: Status: Active Protocol: Document 08/10/21 13:51 SAK (Rec: 08/10/21 17:19 SAK [id number]) Physical Therapy Assessment Rehab Potential Rehabilitation Potential Good Evaluation Complexity Number of Personal Factors/Comorbidities 1-2 Number of Body Systems Impaired 3 Clinical Presentation at Evaluation Evolving Impairments Impairments Functional Activities,Pain,ROM ,Strength Goals Three Impairment Not able to tolerate usual ex program, dec right shld ROM and strength Short Term Goal (STG) Instruct in progressive HEP for purposes of right shoulder ROM and strength STG Duration 09/10/21 Mcfp Goal (LTG) Patient to be independent and compliant with HEP and demonstrate normal right shoulder ROM and strength to allow him to return to all functional activities with right UE. Two Impairment Decreased functional use right UE Impairment Quickdash disability index score 33% Mcfp Goal (LTG) Decrease Quickdash score to no greater than 10% as measure of improved functional use with activities in the home and at work. LTG Duration 10/09/21 One Impairment pain right shoulder as high as 8/10, numbness and tingling at night Impairment limits functional use, interrupts sleep Short Term Goal (STG) Decrease pain to no greater than 4/10 with all usual activities STG Duration 09/10/21 [facility]fp Goal (LTG) Decrease pain to no greater than 2/10 with all usual activities, no numbness or tingling symptoms interrupting sleep at night. LTG Duration 10/09/21 Assessment Summary Assessment Patient presents with function -limiting pain right shoulder with no known injury. x-rays were negative. Signs and symptoms consistent with rotator cuff involvement with decreased muscle bulk supraspinatus and infraspinatus, positive belly press test, pain to palpation right rotator cuff insertion. Patient unable to identify any injury or activity causing the pain and neuro symptoms but may be due to overuse injury with right UE being his dominant hand. He is unable to reach behind his back without pain, has difficulty carrying objects, his right shoulder strength and ROM is diminshed. He previously lifted weights for exercise but stopped this due to pain. Incorrect form with exercise may also have been a contributing factor and feel it is apropriate to review correct performance of ex as he is able to tolerate. Feel he would benefit from physical therapy to decrease his pain, improve his ROM, strength, and functional use of his right UE. Physical Therapy Plan Frequency and Duration Frequency of Treatment 2x/Week Duration of Treatment 8 week Plan of Care Start Date 08/10/21 Plan of Care End Date 10/09/21 Therapeutic Interventions Therapeutic Interventions Aquatic Therapy,Home Exercise Program,Joint Mobilizations, Manual Therapy,Neuromuscular Re-education,Patient/Caregiver Education,Self-Care/Home Management,Soft Tissue Mobilization,Taping, Therapeutic Activities, Therapeutic Exercises Modalities Cold Pack/Ice Massage,Electric Stimulation,Hot Packs, Infrared Therapy,Iontophoresis ,Ultrasound Next Visit Focus/Plan Next Note Type Treatment Note Next Visit Plan Review HEP. Table slide, pulleys, wand exercises for ROM. Row, shld ext, IR/ER , flex with theraband as tolerated standing or supine. If theraband ex not tolerated , try isometric ex. Manual therapy and modalities as indicated for pain. Consider kinesiotape for shoulder support, pain management. Plan of Care Dates Plan of Care Start Date 08/10/21 Plan of Care End Date 10/09/21 Electronically Signed by: Zeinab Louis, MINDY 08/10/21 4500 If you are in agreement with this Plan of Care, please return a signed and dated copy. I have reviewed this Plan of Care and certify that the skilled therapy services above are required to meet the patient?s needs. Physician Signature Date Printed Name and Credentials Clinical Instructor Signature Printed Name and Credentials
--- NOTE | 2021-08-15 15:32 | PT.OTN ---
Current Diagnoses Pain in right shoulder (08/15/21) Physical Therapy Treatment Note PT-OP-A Visit Information Start: 08/08/21 08:04 Freq: Status: Active Protocol: Document 08/15/21 14:32 AW (Rec: 08/15/21 15:32 AW [id number]) Out-Patient Physical Therapy Visit Information Visit Information Visit Type Treatment Note Visit Start Time 14:32 Visit Stop Time 15:15 Total Visit Minutes 43 Visit Number 2 Evaluation Information Evaluation Date 08/10/21 PT-OP-B Current Condition Start: 08/08/21 08:04 Freq: Status: Active Protocol: Document 08/10/21 13:51 SAK (Rec: 08/10/21 14:21 SAK [id number]) Current Condition History of Current Condition Onset Date 3-4 months Current Complaints right shoulder pain History of Current Condition on and off pain with no known cause, denies injury. Reports tingling and numbness at night to fingers. Right handed . No problem at work work unless has to squeeze/carry object. Difficulty/painful reaching behind his back. Stopped doing exercise routine including weight-lifting due to pain. No ice, heat, or medications. 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 Prior Treatments and Tests x-ray: negative Future Testing and Treatments Planned Nothing planned at this time. Patient does not have follow- up scheduled with physician; patient encouraged to schedule 6-8 weeks out. Treatment Goals Patient/Caregiver Goals Decrease right shoulder pain, be able to reach behind his back, carry, sleep, and reach without symptoms Prior Functional Status Baseline Function- ADL's Independent Baseline Function- Work/School works indep, no pain Baseline Function- Recreation/Hobbies gardening ok Current Functional Impairments (Reported) Functional Limitations- ADL's painful to reach behind his back or apply pressure with lifting Functional Limitations- Mobility/Gait indep Functional Limitations- Work/School indep but pain if has to carry object Functional Limitations- Recreation/ not lifting weights or doing Hobbies any exercise program due to right shoulder pain Personal Factors Other Personal Factors That May Effect PMH: HTN, depression, anxiety Therapy/Recovery , IBS, history of colon polyps PT-OP-C Subjective Start: 08/08/21 08:04 Freq: Status: Active Protocol: Document 08/15/21 14:32 AW (Rec: 08/15/21 15:32 AW [id number]) OP-PT Subjective Patient Comments Patient Comments Viktoriya states symptoms have been stable since evaluation. PT-OP-H Neuro Start: 08/08/21 08:04 Freq: Status: Active Protocol: Document 08/10/21 13:51 SAK (Rec: 08/10/21 17:19 [facility] [id number]) Sensation Evaluation Gross Sensation Gross Sensation Right LE Impaired Sensation Description Tingling Comments Summary Comments at night in bed PT-OP-J Posture/Palpation/Skin Start: 08/08/21 08:04 Freq: Status: Active Protocol: Document 08/10/21 13:51 SAK (Rec: 08/10/21 17:19 [facility] [id number]) Posture Evaluation Position Sitting Head/C-Spine Posture Forward Head Shoulder Posture (L) Rounded,(R) Rounded Scapula Posture (R) Protracted Arm Posture (L) Internally Rotated,(R) Internally Rotated Palpation Assessment Location subscap Palpation Findings Tenderness UT Palpation Findings Soft Tissue Tightness Palpation Details hai RC insertion Palpation Findings Tenderness PT-OP-K Range of Motion Start: 08/08/21 08:04 Freq: Status: Active Protocol: Document 08/10/21 13:51 SAK (Rec: 08/10/21 17:19 [facility] [id number]) Cervical Spine Range of Motion Cervical Spine Active Testing Position Sitting Flexion 50 Comments inc right shoulder pain with flex and left sidebending ( tight pulling pain) Shoulder Goniometric Range of Motion Shoulder right Shoulder ROM WFL No Testing Position Sitting Flexion 160 Extension 10 Abduction 155 External Rotation at 90 degrees 70 Abduction Left Shoulder ROM WFL Yes Shoulder ROM Limitations Shoulder ROM Limitations Pain Elbow/Forearm Range of Motion Elbow/Forearm hai Elbow/Forearm ROM WFL Yes PT-OP-L Special Tests Start: 08/08/21 08:04 Freq: Status: Active Protocol: Document 08/10/21 13:51 SAK (Rec: 08/10/21 17:21 [facility] [id number]) Special Tests Shoulder Special Tests Speed's Biceps Test Results negative right Elevation Impingement Test Results positive right Drop Arm Rotator Cuff Test Results negative right Belly Press Test Results positive right PT-OP-M Strength Start: 08/08/21 08:04 Freq: Status: Active Protocol: Document 08/10/21 13:51 SAK (Rec: 08/10/21 17:19 [facility] [id number]) Shoulder Strength Shoulder Manual Muscle Testing Right Flexion 3+ Fair+ Extension 4 Good Abduction (C5) 3+ Fair+ External Rotation 3+ Fair+ Internal Rotation 3+ Fair+ Comments limited by pain Left Flexion 5 Normal Extension 5 Normal Abduction (C5) 5 Normal External Rotation 4 Good Internal Rotation 5 Normal Elbow/Forearm Strength Elbow and Forearm Manual Muscle Testing Right Flexion (C6) 4 Good Extension (C7) 4 Good Comments limited by pain right shoulder Left Flexion (C6) 5 Normal Extension (C7) 5 Normal PT-OP-Q Treatments Start: 08/08/21 08:04 Freq: Status: Active Protocol: Document 08/15/21 14:32 AW (Rec: 08/15/21 15:32 AW [id number]) Cardio Equipment Upper Body Ergometer (UBE) Duration (Minutes) 5 RPM 60 Seat Position 10 Height 2 Therapeutic Exercises Supine Exercises AAROM flexion Supine Exercise Name AAROM flexion Side right Equipment Used wand Comments HEP review Sitting Exercises pulleys Sitting Exercise Name pulleys - flexion, abduction Side right Comments max cues for relaxed right arm ; scapular retraction Sitting Exercise Name scapular retraction Side bilateral Equipment Used + depression vs PT resistance Comments HEP review table slides Sitting Exercise Name table slides - flexion, abduction Side right Comments HEP; cued pain free range, scapular stab Standing Exercises resisted row Standing Exercise Name resisted row Side bilateral Resistance TB2 Reps/Minutes 2x10 Comments HEP AAROM Standing Exercise Name AAROM - extension, ER Side right Comments HEP review Manual Therapy Treatment Soft Tissue Mobilization UT, cervical paraspinals, infrasupinatus, supraspinatus Body Location UT, cervical paraspinals, infrasupinatus, supraspinatus Mobilization Type Strumming,Sustained Pressure Intensity/Depth Moderate Body Position Supine Self-Care/Home Management Treatment Education Patient Education Home Exercise Program,Posture PT-OP-R Modalities Start: 08/08/21 08:04 Freq: Status: Active Protocol: Document 08/10/21 13:51 [facility] (Rec: 08/10/21 17:19 [facility] [id number]) Hot Pack/Cold Pack Treatment Cold Pack Location right shoulder Patient Position Supine Treatment Duration (minutes) 10 Patient Tolerance Good PT-OP-T Assessment and Plan Start: 08/08/21 08:04 Freq: Status: Active Protocol: Document 08/15/21 14:32 AW (Rec: 08/15/21 15:32 AW [id number]) Physical Therapy Assessment Goals Three Impairment Not able to tolerate usual ex program, dec right shld ROM and strength Short Term Goal (STG) Instruct in progressive HEP for purposes of right shoulder ROM and strength STG Duration 09/10/21 Education And Outreach Coordinator Goal (LTG) Patient to be independent and compliant with HEP and demonstrate normal right shoulder ROM and strength to allow him to return to all functional activities with right UE. Two Impairment Decreased functional use right UE Impairment Quickdash disability index score 33% [facility] Goal (LTG) Decrease Quickdash score to no greater than 10% as measure of improved functional use with activities in the home and at work. LTG Duration 10/09/21 One Impairment pain right shoulder as high as 8/10, numbness and tingling at night Impairment limits functional use, interrupts sleep Short Term Goal (STG) Decrease pain to no greater than 4/10 with all usual activities STG Duration 09/10/21 Education And Outreach Coordinator Goal (LTG) Decrease pain to no greater than 2/10 with all usual activities, no numbness or tingling symptoms interrupting sleep at night. LTG Duration 10/09/21 Assessment Summary Assessment Viktoriya tolerated ther ex well with minimal complaint of increased pain. He needed mod cues to reduce UT activation during all activities. Added table slides and resisted row for HEP. Physical Therapy Plan Frequency and Duration Frequency of Treatment 2x/Week Duration of Treatment 8 week Plan of Care Start Date 08/10/21 Plan of Care End Date 10/09/21 Therapeutic Interventions Therapeutic Interventions Aquatic Therapy,Home Exercise Program,Joint Mobilizations, Manual Therapy,Neuromuscular Re-education,Patient/Caregiver Education,Self-Care/Home Management,Soft Tissue Mobilization,Taping, Therapeutic Activities, Therapeutic Exercises Modalities Cold Pack/Ice Massage,Electric Stimulation,Hot Packs, Infrared Therapy,Iontophoresis ,Ultrasound Next Visit Focus/Plan Next Note Type Treatment Note Next Visit Plan Review HEP. Table slide, pulleys, wand exercises for ROM. Row, shld ext, IR/ER , flex with theraband as tolerated standing or supine. If theraband ex not tolerated , try isometric ex. Manual therapy and modalities as indicated for pain. Consider kinesiotape for shoulder support, pain management.
--- NOTE | 2021-08-17 17:34 | PT.OTN ---
Current Diagnoses Pain in right shoulder (08/17/21) Physical Therapy Treatment Note PT-OP-A Visit Information Start: 08/08/21 08:04 Freq: Status: Active Protocol: Document 08/17/21 12:57 AW (Rec: 08/17/21 14:36 AW [id number]) Out-Patient Physical Therapy Visit Information Visit Information Visit Type Treatment Note Visit Start Time 13:45 Visit Stop Time 14:40 Total Visit Minutes 55 Evaluation Information Evaluation Date 08/10/21 PT-OP-B Current Condition Start: 08/08/21 08:04 Freq: Status: Active Protocol: Document 08/10/21 13:51 SAK (Rec: 08/10/21 14:21 SAK [id number]) Current Condition History of Current Condition Onset Date 3-4 months Current Complaints right shoulder pain History of Current Condition on and off pain with no known cause, denies injury. Reports tingling and numbness at night to fingers. Right handed . No problem at work work unless has to squeeze/carry object. Difficulty/painful reaching behind his back. Stopped doing exercise routine including weight-lifting due to pain. No ice, heat, or medications. 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 Prior Treatments and Tests x-ray: negative Future Testing and Treatments Planned Nothing planned at this time. Patient does not have follow- up scheduled with physician; patient encouraged to schedule 6-8 weeks out. Treatment Goals Patient/Caregiver Goals Decrease right shoulder pain, be able to reach behind his back, carry, sleep, and reach without symptoms Prior Functional Status Baseline Function- ADL's Independent Baseline Function- Work/School works indep, no pain Baseline Function- Recreation/Hobbies gardening ok Current Functional Impairments (Reported) Functional Limitations- ADL's painful to reach behind his back or apply pressure with lifting Functional Limitations- Mobility/Gait indep Functional Limitations- Work/School indep but pain if has to carry object Functional Limitations- Recreation/ not lifting weights or doing Hobbies any exercise program due to right shoulder pain Personal Factors Other Personal Factors That May Effect PMH: HTN, depression, anxiety Therapy/Recovery , IBS, history of colon polyps PT-OP-C Subjective Start: 08/08/21 08:04 Freq: Status: Active Protocol: Document 08/17/21 12:57 AW (Rec: 08/17/21 14:36 AW [id number]) OP-PT Subjective Patient Comments Patient Comments Symtpoms are unchanged. Pt has been working overnights this week and is going back to work tonight. Patient Reported Progress Same PT-OP-H Neuro Start: 08/08/21 08:04 Freq: Status: Active Protocol: Document 08/10/21 13:51 SAK (Rec: 08/10/21 17:19 [facility] [id number]) Sensation Evaluation Gross Sensation Gross Sensation Right LE Impaired Sensation Description Tingling Comments Summary Comments at night in bed PT-OP-J Posture/Palpation/Skin Start: 08/08/21 08:04 Freq: Status: Active Protocol: Document 08/10/21 13:51 SAK (Rec: 08/10/21 17:19 [facility] [id number]) Posture Evaluation Position Sitting Head/C-Spine Posture Forward Head Shoulder Posture (L) Rounded,(R) Rounded Scapula Posture (R) Protracted Arm Posture (L) Internally Rotated,(R) Internally Rotated Palpation Assessment Location subscap Palpation Findings Tenderness UT Palpation Findings Soft Tissue Tightness Palpation Details hai RC insertion Palpation Findings Tenderness PT-OP-K Range of Motion Start: 08/08/21 08:04 Freq: Status: Active Protocol: Document 08/10/21 13:51 SAK (Rec: 08/10/21 17:19 [facility] [id number]) Cervical Spine Range of Motion Cervical Spine Active Testing Position Sitting Flexion 50 Comments inc right shoulder pain with flex and left sidebending ( tight pulling pain) Shoulder Goniometric Range of Motion Shoulder right Shoulder ROM WFL No Testing Position Sitting Flexion 160 Extension 10 Abduction 155 External Rotation at 90 degrees 70 Abduction Left Shoulder ROM WFL Yes Shoulder ROM Limitations Shoulder ROM Limitations Pain Elbow/Forearm Range of Motion Elbow/Forearm hai Elbow/Forearm ROM WFL Yes PT-OP-L Special Tests Start: 08/08/21 08:04 Freq: Status: Active Protocol: Document 08/10/21 13:51 SAK (Rec: 08/10/21 17:21 [facility] [id number]) Special Tests Shoulder Special Tests Speed's Biceps Test Results negative right Elevation Impingement Test Results positive right Drop Arm Rotator Cuff Test Results negative right Belly Press Test Results positive right PT-OP-M Strength Start: 08/08/21 08:04 Freq: Status: Active Protocol: Document 08/10/21 13:51 SAK (Rec: 08/10/21 17:19 [facility] [id number]) Shoulder Strength Shoulder Manual Muscle Testing Right Flexion 3+ Fair+ Extension 4 Good Abduction (C5) 3+ Fair+ External Rotation 3+ Fair+ Internal Rotation 3+ Fair+ Comments limited by pain Left Flexion 5 Normal Extension 5 Normal Abduction (C5) 5 Normal External Rotation 4 Good Internal Rotation 5 Normal Elbow/Forearm Strength Elbow and Forearm Manual Muscle Testing Right Flexion (C6) 4 Good Extension (C7) 4 Good Comments limited by pain right shoulder Left Flexion (C6) 5 Normal Extension (C7) 5 Normal PT-OP-Q Treatments Start: 08/08/21 08:04 Freq: Status: Active Protocol: Document 08/17/21 12:57 AW (Rec: 08/17/21 14:36 AW [id number]) Cardio Equipment Upper Body Ergometer (UBE) Duration (Minutes) 4 RPM 60 Seat Position 10 Height 2 Other f/b (fwd slightly painful) Therapeutic Exercises Supine Exercises AAROM flexion Supine Exercise Name AAROM flexion Side right Equipment Used wand Comments HEP review Sidelying Exercises ER Sidelying Exercise Name ER Side right Resistance AROM Reps/Minutes 2x15 Sitting Exercises pulleys Sitting Exercise Name pulleys - flexion, abduction Side right Comments max cues for relaxed right arm scapular retraction Sitting Exercise Name scapular retraction Side bilateral Equipment Used + depression vs PT resistance Comments HEP review Standing Exercises resisted extension Standing Exercise Name resisted extension Side bilateral Resistance TB2 Reps/Minutes 2x10 Comments HEP resisted row Standing Exercise Name resisted row Side bilateral Resistance TB2 Reps/Minutes 2x10 Comments HEP AAROM Standing Exercise Name AAROM - extension, ER Side right Comments HEP review Manual Therapy Treatment Soft Tissue Mobilization UT, cervical paraspinals, infrasupinatus, supraspinatus Body Location UT, LS, rhomboids Mobilization Type Strumming,Sustained Pressure Intensity/Depth Moderate Body Position Sidelying Taping R shoulder Body Location R shoulder Treatment Focus stability Type of Tape KT tape Skin Inspection good Comments 2 I strips - 1 A/P, 1 along supraspinatus. Educated pt to remove if any skin reaction noted. Self-Care/Home Management Treatment Education Patient Education Home Exercise Program,Pain Management Other Education Added sidelying ER AROM, standing resisted IR, and resisted GH extension to home program. PT-OP-R Modalities Start: 08/08/21 08:04 Freq: Status: Active Protocol: Document 08/17/21 12:57 AW (Rec: 08/17/21 17:34 AW [id number]) Hot Pack/Cold Pack Treatment Cold Pack Location right shoulder Patient Position Supine Treatment Duration (minutes) 10 Patient Tolerance Good PT-OP-T Assessment and Plan Start: 08/08/21 08:04 Freq: Status: Active Protocol: Document 08/17/21 12:57 AW (Rec: 08/17/21 14:36 AW [id number]) Physical Therapy Assessment Goals Three Impairment Not able to tolerate usual ex program, dec right shld ROM and strength Short Term Goal (STG) Instruct in progressive HEP for purposes of right shoulder ROM and strength STG Duration 09/10/21 [facility] Goal (LTG) Patient to be independent and compliant with HEP and demonstrate normal right shoulder ROM and strength to allow him to return to all functional activities with right UE. Two Impairment Decreased functional use right UE Impairment Quickdash disability index score 33% [facility] Goal (LTG) Decrease Quickdash score to no greater than 10% as measure of improved functional use with activities in the home and at work. LTG Duration 10/09/21 One Impairment pain right shoulder as high as 8/10, numbness and tingling at night Impairment limits functional use, interrupts sleep Short Term Goal (STG) Decrease pain to no greater than 4/10 with all usual activities STG Duration 09/10/21 Outside Rigger Goal (LTG) Decrease pain to no greater than 2/10 with all usual activities, no numbness or tingling symptoms interrupting sleep at night. LTG Duration 10/09/21 Physical Therapy Plan Frequency and Duration Frequency of Treatment 2x/Week Duration of Treatment 8 week Plan of Care Start Date 08/10/21 Plan of Care End Date 10/09/21 Therapeutic Interventions Therapeutic Interventions Aquatic Therapy,Home Exercise Program,Joint Mobilizations, Manual Therapy,Neuromuscular Re-education,Patient/Caregiver Education,Self-Care/Home Management,Soft Tissue Mobilization,Taping, Therapeutic Activities, Therapeutic Exercises Modalities Cold Pack/Ice Massage,Electric Stimulation,Hot Packs, Infrared Therapy,Iontophoresis ,Ultrasound Next Visit Focus/Plan Next Note Type Treatment Note Next Visit Plan Assess response to KT tape. Review and consolidate HEP. Manual therapy and modalities as indicated for pain.
--- NOTE | 2021-08-22 16:41 | PT.OTN ---
Current Diagnoses Pain in right shoulder (08/22/21) Physical Therapy Treatment Note PT-OP-A Visit Information Start: 08/08/21 08:04 Freq: Status: Active Protocol: Document 08/22/21 14:27 [facility] (Rec: 08/22/21 15:18 [facility] [id number]) Out-Patient Physical Therapy Visit Information Visit Information Visit Type Treatment Note Visit Start Time 14:30 Visit Stop Time 15:25 Total Visit Minutes 55 Visit Number 5 Evaluation Information Evaluation Date 08/10/21 PT-OP-B Current Condition Start: 08/08/21 08:04 Freq: Status: Active Protocol: Document 08/10/21 13:51 [facility] (Rec: 08/10/21 14:21 [facility] [id number]) Current Condition History of Current Condition Onset Date 3-4 months Current Complaints right shoulder pain History of Current Condition on and off pain with no known cause, denies injury. Reports tingling and numbness at night to fingers. Right handed . No problem at work work unless has to squeeze/carry object. Difficulty/painful reaching behind his back. Stopped doing exercise routine including weight-lifting due to pain. No ice, heat, or medications. 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 Prior Treatments and Tests x-ray: negative Future Testing and Treatments Planned Nothing planned at this time. Patient does not have follow- up scheduled with physician; patient encouraged to schedule 6-8 weeks out. Treatment Goals Patient/Caregiver Goals Decrease right shoulder pain, be able to reach behind his back, carry, sleep, and reach without symptoms Prior Functional Status Baseline Function- ADL's Independent Baseline Function- Work/School works indep, no pain Baseline Function- Recreation/Hobbies gardening ok Current Functional Impairments (Reported) Functional Limitations- ADL's painful to reach behind his back or apply pressure with lifting Functional Limitations- Mobility/Gait indep Functional Limitations- Work/School indep but pain if has to carry object Functional Limitations- Recreation/ not lifting weights or doing Hobbies any exercise program due to right shoulder pain Personal Factors Other Personal Factors That May Effect PMH: HTN, depression, anxiety Therapy/Recovery , IBS, history of colon polyps PT-OP-C Subjective Start: 08/08/21 08:04 Freq: Status: Active Protocol: Document 08/22/21 14:27 [facility] (Rec: 08/22/21 15:18 [facility]AK [id number]) OP-PT Subjective Patient Comments Patient Comments Liked kinesiotape, feeling some better right shoulder. Skin has been itching past couple days but has left tape on. Compliant to HEP. Patient Reported Progress Improving PT-OP-H Neuro Start: 08/08/21 08:04 Freq: Status: Active Protocol: Document 08/10/21 13:51 [facility] (Rec: 08/10/21 17:19 [facility] [id number]) Sensation Evaluation Gross Sensation Gross Sensation Right LE Impaired Sensation Description Tingling Comments Summary Comments at night in bed PT-OP-J Posture/Palpation/Skin Start: 08/08/21 08:04 Freq: Status: Active Protocol: Document 08/10/21 13:51 [facility] (Rec: 08/10/21 17:19 [facility] [id number]) Posture Evaluation Position Sitting Head/C-Spine Posture Forward Head Shoulder Posture (L) Rounded,(R) Rounded Scapula Posture (R) Protracted Arm Posture (L) Internally Rotated,(R) Internally Rotated Palpation Assessment Location subscap Palpation Findings Tenderness UT Palpation Findings Soft Tissue Tightness Palpation Details hai RC insertion Palpation Findings Tenderness PT-OP-K Range of Motion Start: 08/08/21 08:04 Freq: Status: Active Protocol: Document 08/10/21 13:51 [facility] (Rec: 08/10/21 17:19 [facility] [id number]) Cervical Spine Range of Motion Cervical Spine Active Testing Position Sitting Flexion 50 Comments inc right shoulder pain with flex and left sidebending ( tight pulling pain) Shoulder Goniometric Range of Motion Shoulder right Shoulder ROM WFL No Testing Position Sitting Flexion 160 Extension 10 Abduction 155 External Rotation at 90 degrees 70 Abduction Left Shoulder ROM WFL Yes Shoulder ROM Limitations Shoulder ROM Limitations Pain Elbow/Forearm Range of Motion Elbow/Forearm hai Elbow/Forearm ROM WFL Yes PT-OP-L Special Tests Start: 08/08/21 08:04 Freq: Status: Active Protocol: Document 08/10/21 13:51 [facility] (Rec: 08/10/21 17:21 [facility] [id number]) Special Tests Shoulder Special Tests Speed's Biceps Test Results negative right Elevation Impingement Test Results positive right Drop Arm Rotator Cuff Test Results negative right Belly Press Test Results positive right PT-OP-M Strength Start: 08/08/21 08:04 Freq: Status: Active Protocol: Document 08/10/21 13:51 [facility] (Rec: 08/10/21 17:19 [facility] [id number]) Shoulder Strength Shoulder Manual Muscle Testing Right Flexion 3+ Fair+ Extension 4 Good Abduction (C5) 3+ Fair+ External Rotation 3+ Fair+ Internal Rotation 3+ Fair+ Comments limited by pain Left Flexion 5 Normal Extension 5 Normal Abduction (C5) 5 Normal External Rotation 4 Good Internal Rotation 5 Normal Elbow/Forearm Strength Elbow and Forearm Manual Muscle Testing Right Flexion (C6) 4 Good Extension (C7) 4 Good Comments limited by pain right shoulder Left Flexion (C6) 5 Normal Extension (C7) 5 Normal PT-OP-Q Treatments Start: 08/08/21 08:04 Freq: Status: Active Protocol: Document 08/22/21 14:27 [facility] (Rec: 08/22/21 15:18 [facility] [id number]) Cardio Equipment Upper Body Ergometer (UBE) Duration (Minutes) 6 RPM 60 Seat Position 10 Height 2 Other f/b denied pain Gym Equipment Cable Column (Body Solid) row Resistance 20 Reps/Time 10x2 lat pull Resistance 20,30 Reps/Time 10x, 6x (crackling in joint so stopped at 6x) Therapeutic Exercises Sidelying Exercises open book Side right Reps/Minutes 5x Comments deep breathing at end range, do hai next session ER Sidelying Exercise Name ER Side right Resistance AROM Reps/Minutes 2x15 Sitting Exercises scapular retraction Sitting Exercise Name scapular retraction Side bilateral Equipment Used + depression vs PT resistance Comments HEP review Standing Exercises shoulder IR Resistance L1 Reps/Minutes 10x2 resisted extension Standing Exercise Name resisted extension Side bilateral Resistance TB2 Reps/Minutes 2x10 Comments HEP Manual Therapy Treatment Soft Tissue Mobilization UT, cervical paraspinals, infrasupinatus, supraspinatus Body Location UT, LS, rhomboids Mobilization Type Strumming,Sustained Pressure Intensity/Depth Moderate Body Position Sidelying Taping R shoulder Body Location R shoulder Treatment Focus postural correction Type of Tape KT tape Skin Inspection good Comments 2 I strips -between scapulae with scapula retracted, 50% tension. Shoulder not taped due to skin irritation. Reviewed instruction to remove if uncomfortable, itching Self-Care/Home Management Treatment Education Patient Education Home Exercise Program,Pain Management Other Education added open book, lat pull PT-OP-R Modalities Start: 08/08/21 08:04 Freq: Status: Active Protocol: Document 08/22/21 14:27 [facility] (Rec: 08/22/21 15:18 [facility] [id number]) Hot Pack/Cold Pack Treatment Cold Pack Location right shoulder Patient Position Supine Treatment Duration (minutes) 10 Patient Tolerance Good PT-OP-T Assessment and Plan Start: 08/08/21 08:04 Freq: Status: Active Protocol: Document 08/22/21 14:27 [facility] (Rec: 08/22/21 15:18 [facility] [id number]) Physical Therapy Assessment Goals Three Impairment Not able to tolerate usual ex program, dec right shld ROM and strength Short Term Goal (STG) Instruct in progressive HEP for purposes of right shoulder ROM and strength STG Duration 09/10/21 Nursing Home Goal (LTG) Patient to be independent and compliant with HEP and demonstrate normal right shoulder ROM and strength to allow him to return to all functional activities with right UE. Two Impairment Decreased functional use right UE Impairment Quickdash disability index score 33% Nursing Home Goal (LTG) Decrease Quickdash score to no greater than 10% as measure of improved functional use with activities in the home and at work. LTG Duration 10/09/21 One Impairment pain right shoulder as high as 8/10, numbness and tingling at night Impairment limits functional use, interrupts sleep Short Term Goal (STG) Decrease pain to no greater than 4/10 with all usual activities STG Duration 09/10/21 Nursing Home Goal (LTG) Decrease pain to no greater than 2/10 with all usual activities, no numbness or tingling symptoms interrupting sleep at night. LTG Duration 10/09/21 Physical Therapy Plan Frequency and Duration Frequency of Treatment 2x/Week Duration of Treatment 8 week Plan of Care Start Date 08/10/21 Plan of Care End Date 10/09/21 Therapeutic Interventions Therapeutic Interventions Aquatic Therapy,Home Exercise Program,Joint Mobilizations, Manual Therapy,Neuromuscular Re-education,Patient/Caregiver Education,Self-Care/Home Management,Soft Tissue Mobilization,Taping, Therapeutic Activities, Therapeutic Exercises Modalities Cold Pack/Ice Massage,Electric Stimulation,Hot Packs, Infrared Therapy,Iontophoresis ,Ultrasound Next Visit Focus/Plan Next Note Type Treatment Note Next Visit Plan ASsess response to postural KT tape, new exercises, tape shoulder again. REview HEP and consolidate as needed. Manual therapy and modalities as needed for pain.
--- NOTE | 2021-08-24 15:45 | PT.OTN ---
Current Diagnoses Pain in right shoulder (08/24/21) Physical Therapy Treatment Note PT-OP-A Visit Information Start: 08/08/21 08:04 Freq: Status: Active Protocol: Document 08/24/21 14:37 [facility] (Rec: 08/24/21 15:45 [facility] [id number]) Out-Patient Physical Therapy Visit Information Visit Information Visit Type Treatment Note Visit Start Time 14:30 Visit Stop Time 15:25 Total Visit Minutes 55 Visit Number 6 Evaluation Information Evaluation Date 08/10/21 PT-OP-B Current Condition Start: 08/08/21 08:04 Freq: Status: Active Protocol: Document 08/10/21 13:51 [facility] (Rec: 08/10/21 14:21 [facility] [id number]) Current Condition History of Current Condition Onset Date 3-4 months Current Complaints right shoulder pain History of Current Condition on and off pain with no known cause, denies injury. Reports tingling and numbness at night to fingers. Right handed . No problem at work work unless has to squeeze/carry object. Difficulty/painful reaching behind his back. Stopped doing exercise routine including weight-lifting due to pain. No ice, heat, or medications. 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 Prior Treatments and Tests x-ray: negative Future Testing and Treatments Planned Nothing planned at this time. Patient does not have follow- up scheduled with physician; patient encouraged to schedule 6-8 weeks out. Treatment Goals Patient/Caregiver Goals Decrease right shoulder pain, be able to reach behind his back, carry, sleep, and reach without symptoms Prior Functional Status Baseline Function- ADL's Independent Baseline Function- Work/School works indep, no pain Baseline Function- Recreation/Hobbies gardening ok Current Functional Impairments (Reported) Functional Limitations- ADL's painful to reach behind his back or apply pressure with lifting Functional Limitations- Mobility/Gait indep Functional Limitations- Work/School indep but pain if has to carry object Functional Limitations- Recreation/ not lifting weights or doing Hobbies any exercise program due to right shoulder pain Personal Factors Other Personal Factors That May Effect PMH: HTN, depression, anxiety Therapy/Recovery , IBS, history of colon polyps PT-OP-C Subjective Start: 08/08/21 08:04 Freq: Status: Active Protocol: Document 08/24/21 14:37 [facility] (Rec: 08/24/21 15:45 [facility] [id number]) OP-PT Subjective Patient Comments Patient Comments Didn't feel postural taping as helpful as shoulder taping, thinks skin has recovered to be able to tape shoulder again . Patient Reported Progress Improving PT-OP-H Neuro Start: 08/08/21 08:04 Freq: Status: Active Protocol: Document 08/10/21 13:51 [facility] (Rec: 08/10/21 17:19 [facility] [id number]) Sensation Evaluation Gross Sensation Gross Sensation Right LE Impaired Sensation Description Tingling Comments Summary Comments at night in bed PT-OP-J Posture/Palpation/Skin Start: 08/08/21 08:04 Freq: Status: Active Protocol: Document 08/10/21 13:51 [facility] (Rec: 08/10/21 17:19 [facility] [id number]) Posture Evaluation Position Sitting Head/C-Spine Posture Forward Head Shoulder Posture (L) Rounded,(R) Rounded Scapula Posture (R) Protracted Arm Posture (L) Internally Rotated,(R) Internally Rotated Palpation Assessment Location subscap Palpation Findings Tenderness UT Palpation Findings Soft Tissue Tightness Palpation Details hai RC insertion Palpation Findings Tenderness PT-OP-K Range of Motion Start: 08/08/21 08:04 Freq: Status: Active Protocol: Document 08/10/21 13:51 [facility] (Rec: 08/10/21 17:19 [facility] [id number]) Cervical Spine Range of Motion Cervical Spine Active Testing Position Sitting Flexion 50 Comments inc right shoulder pain with flex and left sidebending ( tight pulling pain) Shoulder Goniometric Range of Motion Shoulder right Shoulder ROM WFL No Testing Position Sitting Flexion 160 Extension 10 Abduction 155 External Rotation at 90 degrees 70 Abduction Left Shoulder ROM WFL Yes Shoulder ROM Limitations Shoulder ROM Limitations Pain Elbow/Forearm Range of Motion Elbow/Forearm hai Elbow/Forearm ROM WFL Yes PT-OP-L Special Tests Start: 08/08/21 08:04 Freq: Status: Active Protocol: Document 08/10/21 13:51 [facility] (Rec: 08/10/21 17:21 [facility] [id number]) Special Tests Shoulder Special Tests Speed's Biceps Test Results negative right Elevation Impingement Test Results positive right Drop Arm Rotator Cuff Test Results negative right Belly Press Test Results positive right PT-OP-M Strength Start: 08/08/21 08:04 Freq: Status: Active Protocol: Document 08/10/21 13:51 [facility] (Rec: 08/10/21 17:19 [facility] [id number]) Shoulder Strength Shoulder Manual Muscle Testing Right Flexion 3+ Fair+ Extension 4 Good Abduction (C5) 3+ Fair+ External Rotation 3+ Fair+ Internal Rotation 3+ Fair+ Comments limited by pain Left Flexion 5 Normal Extension 5 Normal Abduction (C5) 5 Normal External Rotation 4 Good Internal Rotation 5 Normal Elbow/Forearm Strength Elbow and Forearm Manual Muscle Testing Right Flexion (C6) 4 Good Extension (C7) 4 Good Comments limited by pain right shoulder Left Flexion (C6) 5 Normal Extension (C7) 5 Normal PT-OP-Q Treatments Start: 08/08/21 08:04 Freq: Status: Active Protocol: Document 08/24/21 14:37 [facility] (Rec: 08/24/21 15:45 [facility] [id number]) Cardio Equipment Upper Body Ergometer (UBE) Duration (Minutes) 6 RPM 60 Seat Position 10 Height 3 Other f/b denied pain Gym Equipment Cable Column (Body Solid) lower trap shrug Resistance 30 Reps/Time cues for increased scapular movement row Resistance 20 Reps/Time 10x2 lat pull Resistance 25,30 Reps/Time 10x, 10x Therapeutic Exercises Supine Exercises ER Reps/Minutes 5x Comments AAROM; full ROM Prone Exercises scapular retraction with shoulder hor ab Reps/Minutes 10x, Comments tactile and verbal cues for increased right UE movement shoulder extension Reps/Minutes 10x Comments cues for scapular squeeze Sidelying Exercises open book Side right Reps/Minutes 5x Comments deep breathing at end range, do hai next session ER Sidelying Exercise Name ER Side right Resistance 1# Reps/Minutes 2x15 Sitting Exercises shoulder rolls Reps/Minutes 5x2 table slides Comments advised to discontinue as able to do without difficulty Standing Exercises wall push up Reps/Minutes 10x shoulder IR Standing Exercise Name HEP resisted extension Standing Exercise Name HEP resisted row Standing Exercise Name HEP AAROM Standing Exercise Name HEP Manual Therapy Treatment Taping R shoulder Body Location R shoulder Treatment Focus stability Type of Tape KT tape Skin Inspection good Comments 2 I strips - 1 A/P, 1 along supraspinatus. Educated pt to remove if any skin reaction noted. Self-Care/Home Management Treatment Education Patient Education Home Exercise Program,Pain Management PT-OP-R Modalities Start: 08/08/21 08:04 Freq: Status: Active Protocol: Document 08/24/21 14:37 [facility] (Rec: 08/24/21 15:45 [facility] [id number]) Electric Stimulation Electric Stimulation right shoulder Duration (Minutes) 15 Intensity 24 Target/Sweep Sweep Patient Position Hooklying Combined With Heat/Cold Cold Pack PT-OP-T Assessment and Plan Start: 08/08/21 08:04 Freq: Status: Active Protocol: Document 08/24/21 14:37 [facility] (Rec: 08/24/21 15:45 [facility] [id number]) Physical Therapy Assessment Goals Three Impairment Not able to tolerate usual ex program, dec right shld ROM and strength Short Term Goal (STG) Instruct in progressive HEP for purposes of right shoulder ROM and strength STG Duration 09/10/21 [facility] Goal (LTG) Patient to be independent and compliant with HEP and demonstrate normal right shoulder ROM and strength to allow him to return to all functional activities with right UE. Two Impairment Decreased functional use right UE Impairment Quickdash disability index score 33% Support Director Goal (LTG) Decrease Quickdash score to no greater than 10% as measure of improved functional use with activities in the home and at work. LTG Duration 10/09/21 One Impairment pain right shoulder as high as 8/10, numbness and tingling at night Impairment limits functional use, interrupts sleep Short Term Goal (STG) Decrease pain to no greater than 4/10 with all usual activities STG Duration 09/10/21 [facility] Goal (LTG) Decrease pain to no greater than 2/10 with all usual activities, no numbness or tingling symptoms interrupting sleep at night. LTG Duration 10/09/21 Progress Towards Goals Progress Towards Goals Progressing Toward Goals Assessment Summary Assessment Patient able to [id number] then 30# with lat pull today and addition of lower trap shrug, wall push up, and prone I and T today with cues for scapular movement. Noting decrease in pain. Physical Therapy Plan Frequency and Duration Frequency of Treatment 2x/Week Duration of Treatment 8 week Plan of Care Start Date 08/10/21 Plan of Care End Date 10/09/21 Therapeutic Interventions Therapeutic Interventions Aquatic Therapy,Home Exercise Program,Joint Mobilizations, Manual Therapy,Neuromuscular Re-education,Patient/Caregiver Education,Self-Care/Home Management,Soft Tissue Mobilization,Taping, Therapeutic Activities, Therapeutic Exercises Modalities Cold Pack/Ice Massage,Electric Stimulation,Hot Packs, Infrared Therapy,Iontophoresis ,Ultrasound
--- NOTE | 2021-08-29 17:06 | PT.OTN ---
Current Diagnoses Pain in right shoulder (08/29/21) Physical Therapy Treatment Note PT-OP-A Visit Information Start: 08/08/21 08:04 Freq: Status: Active Protocol: Document 08/29/21 14:41 SAK (Rec: 08/29/21 15:17 [facility] [id number]) Out-Patient Physical Therapy Visit Information Visit Information Visit Type Treatment Note Visit Start Time 14:30 Visit Stop Time 15:30 Total Visit Minutes 60 Visit Number 7 Evaluation Information Evaluation Date 08/10/21 PT-OP-B Current Condition Start: 08/08/21 08:04 Freq: Status: Active Protocol: Document 08/10/21 13:51 SAK (Rec: 08/10/21 14:21 [facility] [id number]) Current Condition History of Current Condition Onset Date 3-4 months Current Complaints right shoulder pain History of Current Condition on and off pain with no known cause, denies injury. Reports tingling and numbness at night to fingers. Right handed . No problem at work work unless has to squeeze/carry object. Difficulty/painful reaching behind his back. Stopped doing exercise routine including weight-lifting due to pain. No ice, heat, or medications. 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 Prior Treatments and Tests x-ray: negative Future Testing and Treatments Planned Nothing planned at this time. Patient does not have follow- up scheduled with physician; patient encouraged to schedule 6-8 weeks out. Treatment Goals Patient/Caregiver Goals Decrease right shoulder pain, be able to reach behind his back, carry, sleep, and reach without symptoms Prior Functional Status Baseline Function- ADL's Independent Baseline Function- Work/School works indep, no pain Baseline Function- Recreation/Hobbies gardening ok Current Functional Impairments (Reported) Functional Limitations- ADL's painful to reach behind his back or apply pressure with lifting Functional Limitations- Mobility/Gait indep Functional Limitations- Work/School indep but pain if has to carry object Functional Limitations- Recreation/ not lifting weights or doing Hobbies any exercise program due to right shoulder pain Personal Factors Other Personal Factors That May Effect PMH: HTN, depression, anxiety Therapy/Recovery , IBS, history of colon polyps PT-OP-C Subjective Start: 08/08/21 08:04 Freq: Status: Active Protocol: Document 08/29/21 14:41 SAK (Rec: 08/29/21 15:17 [facility] [id number]) OP-PT Subjective Patient Comments Patient Comments getting better. Tape removed 1 day ago. Feels shoulder getting better, though has had occasional numbess into fingers while sleeping PT-OP-H Neuro Start: 08/08/21 08:04 Freq: Status: Active Protocol: Document 08/10/21 13:51 SAK (Rec: 08/10/21 17:19 [facility] [id number]) Sensation Evaluation Gross Sensation Gross Sensation Right LE Impaired Sensation Description Tingling Comments Summary Comments at night in bed PT-OP-J Posture/Palpation/Skin Start: 08/08/21 08:04 Freq: Status: Active Protocol: Document 08/10/21 13:51 SAK (Rec: 08/10/21 17:19 [facility] [id number]) Posture Evaluation Position Sitting Head/C-Spine Posture Forward Head Shoulder Posture (L) Rounded,(R) Rounded Scapula Posture (R) Protracted Arm Posture (L) Internally Rotated,(R) Internally Rotated Palpation Assessment Location subscap Palpation Findings Tenderness UT Palpation Findings Soft Tissue Tightness Palpation Details hai RC insertion Palpation Findings Tenderness PT-OP-K Range of Motion Start: 08/08/21 08:04 Freq: Status: Active Protocol: Document 08/10/21 13:51 SAK (Rec: 08/10/21 17:19 [facility] [id number]) Cervical Spine Range of Motion Cervical Spine Active Testing Position Sitting Flexion 50 Comments inc right shoulder pain with flex and left sidebending ( tight pulling pain) Shoulder Goniometric Range of Motion Shoulder right Shoulder ROM WFL No Testing Position Sitting Flexion 160 Extension 10 Abduction 155 External Rotation at 90 degrees 70 Abduction Left Shoulder ROM WFL Yes Shoulder ROM Limitations Shoulder ROM Limitations Pain Elbow/Forearm Range of Motion Elbow/Forearm hai Elbow/Forearm ROM WFL Yes PT-OP-L Special Tests Start: 08/08/21 08:04 Freq: Status: Active Protocol: Document 08/10/21 13:51 SAK (Rec: 08/10/21 17:21 [facility] [id number]) Special Tests Shoulder Special Tests Speed's Biceps Test Results negative right Elevation Impingement Test Results positive right Drop Arm Rotator Cuff Test Results negative right Belly Press Test Results positive right PT-OP-M Strength Start: 08/08/21 08:04 Freq: Status: Active Protocol: Document 08/10/21 13:51 SAK (Rec: 08/10/21 17:19 [facility] [id number]) Shoulder Strength Shoulder Manual Muscle Testing Right Flexion 3+ Fair+ Extension 4 Good Abduction (C5) 3+ Fair+ External Rotation 3+ Fair+ Internal Rotation 3+ Fair+ Comments limited by pain Left Flexion 5 Normal Extension 5 Normal Abduction (C5) 5 Normal External Rotation 4 Good Internal Rotation 5 Normal Elbow/Forearm Strength Elbow and Forearm Manual Muscle Testing Right Flexion (C6) 4 Good Extension (C7) 4 Good Comments limited by pain right shoulder Left Flexion (C6) 5 Normal Extension (C7) 5 Normal PT-OP-Q Treatments Start: 08/08/21 08:04 Freq: Status: Active Protocol: Document 08/29/21 14:41 [facility] (Rec: 08/29/21 15:17 [facility] [id number]) Cardio Equipment Upper Body Ergometer (UBE) Duration (Minutes) 6 RPM 60 Seat Position 10 Height 3 Other f/b denied pain Gym Equipment Cable Column (Body Solid) lower trap shrug Resistance 30 Reps/Time cues for increased scapular movement row Resistance 20 Reps/Time 10x2 lat pull Resistance 25,30 Reps/Time 10x, 10x Therapeutic Exercises Supine Exercises ER Equipment Used L1 TB Reps/Minutes 10x Comments shoulder at 45 deg abduction Prone Exercises prone Y Reps/Minutes 10x Comments verbal and tactile cues scapular retraction with shoulder hor ab Reps/Minutes 10x, Comments tactile and verbal cues for increased right UE movement shoulder extension Reps/Minutes 15x Comments cues for scapular squeeze Sidelying Exercises open book Side right Reps/Minutes 5x Comments deep breathing at end range, do hai next session Manual Therapy Treatment Taping R shoulder Body Location R shoulder Treatment Focus stability Type of Tape KT tape Skin Inspection good Comments 2 I strips - 1 A/P, 1 along supraspinatus. Educated pt to remove if any skin reaction noted. Self-Care/Home Management Treatment Education Patient Education Home Exercise Program,Pain Management PT-OP-R Modalities Start: 08/08/21 08:04 Freq: Status: Active Protocol: Document 08/29/21 14:41 [facility] (Rec: 08/29/21 17:05 [facility] [id number]) Electric Stimulation Electric Stimulation right shoulder Duration (Minutes) 10 Intensity 20 Target/Sweep Sweep Patient Position Hooklying Combined With Heat/Cold Cold Pack PT-OP-T Assessment and Plan Start: 08/08/21 08:04 Freq: Status: Active Protocol: Document 08/29/21 14:41 [facility] (Rec: 08/29/21 15:17 [facility] [id number]) Physical Therapy Assessment Goals Three Impairment Not able to tolerate usual ex program, dec right shld ROM and strength Short Term Goal (STG) Instruct in progressive HEP for purposes of right shoulder ROM and strength STG Duration 09/10/21 [employer] Goal (LTG) Patient to be independent and compliant with HEP and demonstrate normal right shoulder ROM and strength to allow him to return to all functional activities with right UE. Two Impairment Decreased functional use right UE Impairment Quickdash disability index score 33% [employer] Goal (LTG) Decrease Quickdash score to no greater than 10% as measure of improved functional use with activities in the home and at work. LTG Duration 10/09/21 One Impairment pain right shoulder as high as 8/10, numbness and tingling at night Impairment limits functional use, interrupts sleep Short Term Goal (STG) Decrease pain to no greater than 4/10 with all usual activities STG Duration 09/10/21 Prison Goal (LTG) Decrease pain to no greater than 2/10 with all usual activities, no numbness or tingling symptoms interrupting sleep at night. LTG Duration 10/09/21 Progress Towards Goals Progress Towards Goals Progressing Toward Goals Assessment Summary Assessment Best tolerance for resisted shoulder ER supine with shoulder abduction 45 deg with L1 TB; used patient cell phone to video exercise for correct performance. Physical Therapy Plan Frequency and Duration Frequency of Treatment 2x/Week Duration of Treatment 8 week Plan of Care Start Date 08/10/21 Plan of Care End Date 10/09/21 Therapeutic Interventions Therapeutic Interventions Aquatic Therapy,Home Exercise Program,Joint Mobilizations, Manual Therapy,Neuromuscular Re-education,Patient/Caregiver Education,Self-Care/Home Management,Soft Tissue Mobilization,Taping, Therapeutic Activities, Therapeutic Exercises Modalities Cold Pack/Ice Massage,Electric Stimulation,Hot Packs, Infrared Therapy,Iontophoresis ,Ultrasound Next Visit Focus/Plan Next Note Type Treatment Note Next Visit Plan Review prone ther ex, add supine resisted PNF with theraband.
--- NOTE | 2021-08-31 09:13 | PT.OTN ---
Current Diagnoses Pain in right shoulder (08/31/21) Physical Therapy Treatment Note PT-OP-A Visit Information Start: 08/08/21 08:04 Freq: Status: Active Protocol: Document 08/31/21 14:40 [facility]AK (Rec: 08/31/21 15:25 [facility] [id number]) Out-Patient Physical Therapy Visit Information Visit Information Visit Type Treatment Note Visit Start Time 14:30 Visit Stop Time 15:30 Total Visit Minutes 60 Visit Number 8 Evaluation Information Evaluation Date 08/10/21 PT-OP-B Current Condition Start: 08/08/21 08:04 Freq: Status: Active Protocol: Document 08/10/21 13:51 SAK (Rec: 08/10/21 14:21 [facility] [id number]) Current Condition History of Current Condition Onset Date 3-4 months Current Complaints right shoulder pain History of Current Condition on and off pain with no known cause, denies injury. Reports tingling and numbness at night to fingers. Right handed . No problem at work work unless has to squeeze/carry object. Difficulty/painful reaching behind his back. Stopped doing exercise routine including weight-lifting due to pain. No ice, heat, or medications. 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 Prior Treatments and Tests x-ray: negative Future Testing and Treatments Planned Nothing planned at this time. Patient does not have follow- up scheduled with physician; patient encouraged to schedule 6-8 weeks out. Treatment Goals Patient/Caregiver Goals Decrease right shoulder pain, be able to reach behind his back, carry, sleep, and reach without symptoms Prior Functional Status Baseline Function- ADL's Independent Baseline Function- Work/School works indep, no pain Baseline Function- Recreation/Hobbies gardening ok Current Functional Impairments (Reported) Functional Limitations- ADL's painful to reach behind his back or apply pressure with lifting Functional Limitations- Mobility/Gait indep Functional Limitations- Work/School indep but pain if has to carry object Functional Limitations- Recreation/ not lifting weights or doing Hobbies any exercise program due to right shoulder pain Personal Factors Other Personal Factors That May Effect PMH: HTN, depression, anxiety Therapy/Recovery , IBS, history of colon polyps PT-OP-C Subjective Start: 08/08/21 08:04 Freq: Status: Active Protocol: Document 08/31/21 14:40 SAK (Rec: 08/31/21 15:25 [facility] [id number]) OP-PT Subjective Patient Comments 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 Pain 4/10, getting better, but not gone. Pain worst when lay down to go to bed. No numbness into fingers last night. PT-OP-H Neuro Start: 08/08/21 08:04 Freq: Status: Active Protocol: Document 08/10/21 13:51 [facility] (Rec: 08/10/21 17:19 [facility] [id number]) Sensation Evaluation Gross Sensation Gross Sensation Right LE Impaired Sensation Description Tingling Comments Summary Comments at night in bed PT-OP-J Posture/Palpation/Skin Start: 08/08/21 08:04 Freq: Status: Active Protocol: Document 08/10/21 13:51 [facility] (Rec: 08/10/21 17:19 [facility] [id number]) Posture Evaluation Position Sitting Head/C-Spine Posture Forward Head Shoulder Posture (L) Rounded,(R) Rounded Scapula Posture (R) Protracted Arm Posture (L) Internally Rotated,(R) Internally Rotated Palpation Assessment Location subscap Palpation Findings Tenderness UT Palpation Findings Soft Tissue Tightness Palpation Details hai RC insertion Palpation Findings Tenderness PT-OP-K Range of Motion Start: 08/08/21 08:04 Freq: Status: Active Protocol: Document 08/10/21 13:51 [facility] (Rec: 08/10/21 17:19 [facility] [id number]) Cervical Spine Range of Motion Cervical Spine Active Testing Position Sitting Flexion 50 Comments inc right shoulder pain with flex and left sidebending ( tight pulling pain) Shoulder Goniometric Range of Motion Shoulder right Shoulder ROM WFL No Testing Position Sitting Flexion 160 Extension 10 Abduction 155 External Rotation at 90 degrees 70 Abduction Left Shoulder ROM WFL Yes Shoulder ROM Limitations Shoulder ROM Limitations Pain Elbow/Forearm Range of Motion Elbow/Forearm hai Elbow/Forearm ROM WFL Yes PT-OP-L Special Tests Start: 08/08/21 08:04 Freq: Status: Active Protocol: Document 08/10/21 13:51 [facility] (Rec: 08/10/21 17:21 [facility] [id number]) Special Tests Shoulder Special Tests Speed's Biceps Test Results negative right Elevation Impingement Test Results positive right Drop Arm Rotator Cuff Test Results negative right Belly Press Test Results positive right PT-OP-M Strength Start: 08/08/21 08:04 Freq: Status: Active Protocol: Document 08/10/21 13:51 [facility] (Rec: 08/10/21 17:19 [facility] [id number]) Shoulder Strength Shoulder Manual Muscle Testing Right Flexion 3+ Fair+ Extension 4 Good Abduction (C5) 3+ Fair+ External Rotation 3+ Fair+ Internal Rotation 3+ Fair+ Comments limited by pain Left Flexion 5 Normal Extension 5 Normal Abduction (C5) 5 Normal External Rotation 4 Good Internal Rotation 5 Normal Elbow/Forearm Strength Elbow and Forearm Manual Muscle Testing Right Flexion (C6) 4 Good Extension (C7) 4 Good Comments limited by pain right shoulder Left Flexion (C6) 5 Normal Extension (C7) 5 Normal PT-OP-Q Treatments Start: 08/08/21 08:04 Freq: Status: Active Protocol: Document 08/31/21 14:40 [facility] (Rec: 08/31/21 15:25 [facility] [id number]) Cardio Equipment Upper Body Ergometer (UBE) Duration (Minutes) 6 RPM 60 Seat Position 10 Height 3 Other f/b denied pain Gym Equipment Cable Column (Body Solid) lower trap shrug Resistance 30 Reps/Time cues for increased scapular movement row Resistance 20 Reps/Time 10x2 lat pull Resistance 25,30 Reps/Time 10x, 10x Therapeutic Exercises Supine Exercises ER Equipment Used L1 TB Reps/Minutes 10x Comments shoulder at 45 deg abduction Prone Exercises prone Y Reps/Minutes 10x Comments verbal and tactile cues scapular retraction with shoulder hor ab Reps/Minutes 10x, Comments tactile and verbal cues for increased right UE movement shoulder extension Reps/Minutes 15x Comments cues for scapular squeeze Sidelying Exercises open book Side right Reps/Minutes 5x Comments deep breathing at end range, do hai next session Manual Therapy Treatment Taping R shoulder Body Location R shoulder Treatment Focus stability Type of Tape KT tape Skin Inspection good Comments 2 I strips - 1 A/P, 1 along supraspinatus. Educated pt to remove if any skin reaction noted. PT-OP-R Modalities Start: 08/08/21 08:04 Freq: Status: Active Protocol: Document 08/31/21 14:40 [facility] (Rec: 09/03/21 09:13 [facility] [id number]) Electric Stimulation Electric Stimulation right shoulder Duration (Minutes) 10 Intensity 20 Target/Sweep Sweep Patient Position Hooklying Combined With Heat/Cold Cold Pack Hot Pack/Cold Pack Treatment Cold Pack Location right shoulder Patient Position Supine Treatment Duration (minutes) 10 Patient Tolerance Good PT-OP-T Assessment and Plan Start: 08/08/21 08:04 Freq: Status: Active Protocol: Document 08/31/21 14:40 [facility] (Rec: 08/31/21 15:25 [facility] [id number]) Physical Therapy Assessment Goals Three Impairment Not able to tolerate usual ex program, dec right shld ROM and strength Short Term Goal (STG) Instruct in progressive HEP for purposes of right shoulder ROM and strength STG Duration 09/10/21 [employer] Operator Goal (LTG) Patient to be independent and compliant with HEP and demonstrate normal right shoulder ROM and strength to allow him to return to all functional activities with right UE. Two Impairment Decreased functional use right UE Impairment Quickdash disability index score 33% Nursing Home Goal (LTG) Decrease Quickdash score to no greater than 10% as measure of improved functional use with activities in the home and at work. LTG Duration 10/09/21 One Impairment pain right shoulder as high as 8/10, numbness and tingling at night Impairment limits functional use, interrupts sleep Short Term Goal (STG) Decrease pain to no greater than 4/10 with all usual activities STG Duration 09/10/21 Nursing Home Goal (LTG) Decrease pain to no greater than 2/10 with all usual activities, no numbness or tingling symptoms interrupting sleep at night. LTG Duration 10/09/21 Progress Towards Goals Progress Towards Goals Progressing Toward Goals Assessment Summary Assessment Continues to progress with ther ex, improving scapular activation and movement with all exercises. Physical Therapy Plan Frequency and Duration Frequency of Treatment 2x/Week Duration of Treatment 8 week Plan of Care Start Date 08/10/21 Plan of Care End Date 10/09/21 Therapeutic Interventions Therapeutic Interventions Aquatic Therapy,Home Exercise Program,Joint Mobilizations, Manual Therapy,Neuromuscular Re-education,Patient/Caregiver Education,Self-Care/Home Management,Soft Tissue Mobilization,Taping, Therapeutic Activities, Therapeutic Exercises Modalities Cold Pack/Ice Massage,Electric Stimulation,Hot Packs, Infrared Therapy,Iontophoresis ,Ultrasound Next Visit Focus/Plan Next Note Type Treatment Note Next Visit Plan Add supine resisted PNF with theraband next session.
--- NOTE | 2021-10-10 13:18 | PT-OP ANOTE ---
DNS, called and LVM
--- NOTE | 2021-10-10 16:19 | PT.OPDS ---
Current Diagnoses Pain in right shoulder (08/31/21) Visit Care Team Role Provider Type Jori Valencia MD Attending Provider Physician Family Provider Primary Care Provider Referring Provider Specialty: Family Practice Address: [address] [place] [address], [facility] Email: [email or web address] Visit Number Visit Number 8 Discharge Summary PT-OP-B Current Condition Start: 08/08/21 08:04 Freq: Status: Active Protocol: Document 08/10/21 13:51 [facility] (Rec: 08/10/21 14:21 [facility] [id number]) Current Condition History of Current Condition Onset Date 3-4 months Current Complaints right shoulder pain History of Current Condition on and off pain with no known cause, denies injury. Reports tingling and numbness at night to fingers. Right handed . No problem at work work unless has to squeeze/carry object. Difficulty/painful reaching behind his back. Stopped doing exercise routine including weight-lifting due to pain. No ice, heat, or medications. 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 Prior Treatments and Tests x-ray: negative Future Testing and Treatments Planned Nothing planned at this time. Patient does not have follow- up scheduled with physician; patient encouraged to schedule 6-8 weeks out. Treatment Goals Patient/Caregiver Goals Decrease right shoulder pain, be able to reach behind his back, carry, sleep, and reach without symptoms Prior Functional Status Baseline Function- ADL's Independent Baseline Function- Work/School works indep, no pain Baseline Function- Recreation/Hobbies gardening ok Current Functional Impairments (Reported) Functional Limitations- ADL's painful to reach behind his back or apply pressure with lifting Functional Limitations- Mobility/Gait indep Functional Limitations- Work/School indep but pain if has to carry object Functional Limitations- Recreation/ not lifting weights or doing Hobbies any exercise program due to right shoulder pain Personal Factors Other Personal Factors That May Effect PMH: HTN, depression, anxiety Therapy/Recovery , IBS, history of colon polyps PT-OP-C Subjective Start: 08/08/21 08:04 Freq: Status: Active Protocol: Document 08/31/21 14:40 [facility] (Rec: 08/31/21 15:25 [facility] [id number]) OP-PT Subjective Patient Comments 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 Pain 4/10, getting better, but not gone. Pain worst when lay down to go to bed. No numbness into fingers last night. PT-OP-H Neuro Start: 08/08/21 08:04 Freq: Status: Active Protocol: Document 08/10/21 13:51 [facility] (Rec: 08/10/21 17:19 [facility] [id number]) Sensation Evaluation Gross Sensation Gross Sensation Right LE Impaired Sensation Description Tingling Comments Summary Comments at night in bed PT-OP-J Posture/Palpation/Skin Start: 08/08/21 08:04 Freq: Status: Active Protocol: Document 08/10/21 13:51 [facility] (Rec: 08/10/21 17:19 [facility] [id number]) Posture Evaluation Position Sitting Head/C-Spine Posture Forward Head Shoulder Posture (L) Rounded,(R) Rounded Scapula Posture (R) Protracted Arm Posture (L) Internally Rotated,(R) Internally Rotated Palpation Assessment Location subscap Palpation Findings Tenderness UT Palpation Findings Soft Tissue Tightness Palpation Details hai RC insertion Palpation Findings Tenderness PT-OP-K Range of Motion Start: 08/08/21 08:04 Freq: Status: Active Protocol: Document 08/10/21 13:51 [facility] (Rec: 08/10/21 17:19 [facility] [id number]) Cervical Spine Range of Motion Cervical Spine Active Testing Position Sitting Flexion 50 Comments inc right shoulder pain with flex and left sidebending ( tight pulling pain) Shoulder Goniometric Range of Motion Shoulder right Shoulder ROM WFL No Testing Position Sitting Flexion 160 Extension 10 Abduction 155 External Rotation at 90 degrees 70 Abduction Left Shoulder ROM WFL Yes Shoulder ROM Limitations Shoulder ROM Limitations Pain Elbow/Forearm Range of Motion Elbow/Forearm hai Elbow/Forearm ROM WFL Yes PT-OP-L Special Tests Start: 08/08/21 08:04 Freq: Status: Active Protocol: Document 08/10/21 13:51 [facility] (Rec: 08/10/21 17:21 [facility] [id number]) Special Tests Shoulder Special Tests Speed's Biceps Test Results negative right Elevation Impingement Test Results positive right Drop Arm Rotator Cuff Test Results negative right Belly Press Test Results positive right PT-OP-M Strength Start: 08/08/21 08:04 Freq: Status: Active Protocol: Document 08/10/21 13:51 [facility] (Rec: 08/10/21 17:19 [facility] [id number]) Shoulder Strength Shoulder Manual Muscle Testing Right Flexion 3+ Fair+ Extension 4 Good Abduction (C5) 3+ Fair+ External Rotation 3+ Fair+ Internal Rotation 3+ Fair+ Comments limited by pain Left Flexion 5 Normal Extension 5 Normal Abduction (C5) 5 Normal External Rotation 4 Good Internal Rotation 5 Normal Elbow/Forearm Strength Elbow and Forearm Manual Muscle Testing Right Flexion (C6) 4 Good Extension (C7) 4 Good Comments limited by pain right shoulder Left Flexion (C6) 5 Normal Extension (C7) 5 Normal PT-OP-T Assessment and Plan Start: 08/08/21 08:04 Freq: Status: Active Protocol: Document 10/10/21 13:17 [facility] (Rec: 10/10/21 16:19 [facility] [id number]) Physical Therapy Plan Discharge Physical Therapy Discharge Reasons Patient Request Discharge Comments Unable to attend PT at this time due to busy schedule at work. Requested cancel all PT visits at this time and will obtain new PT referral when able to attend consistently.
== END 2021-10-11 13:57 ==
LOC: PHYS 14:30
PROVIDERS: Family Provider Family Medicine; PCP Family Medicine; Referring Provider Family Medicine; Visit Provider Family Medicine
DX: M25.511 Pain in right shoulder (principal)
CPT/HCPCS: 97010; 97014; 97110; 97140; 97162; 97535; G0283

== ENCOUNTER → 2021-10-31 14:43 | Outpatient (CLI) | payer OTHER, MEDICARE, SELFPAY ==
--- NOTE | 2021-10-31 15:11 | DI.CT.S_ITS ---
PROCEDURE: CT KIDNEY URETER BLADDER (KUB) INDICATIONS: Requested from Urology for Referral TECHNIQUE: Axial sections were acquired from the lung bases to the pubic symphysis. Coronal and sagittal reformats were performed. For radiation dose reduction, the following was used: automated exposure control, adjustment of mA and/or kV according to patient size. COMPARISON: None. FINDINGS: Image quality: Excellent. Lung bases: Unremarkable. Heart: No significant findings. URINARY: Right Kidney: No stones or hydronephrosis. Right Ureter: No hydroureter. Left Kidney: Middle pole peripelvic cyst. No stone or hydronephrosis. Left Ureter: No hydroureter. Bladder: Mild diffuse bladder wall thickening. Enlarged prostate. No stones. ABDOMEN: Liver: Unremarkable. Gallbladder: Unremarkable. Biliary ducts: Unremarkable. Pancreas: Unremarkable. Spleen: Unremarkable. Adrenal Glands: Unremarkable. Stomach and Bowel: Stomach, small bowel loops, and colon are unremarkable. Peritoneum: No abnormal intraperitoneal fluid. No free air. Ventral Wall: No hernia. Abdominal Nodes: No enlarged retroperitoneal or mesenteric lymph nodes. Vessels: Aorta and inferior vena cava are normal in size. PELVIS: Pelvic Organs: Unremarkable. Pelvic Nodes: Unremarkable. Miscellaneous: No inguinal hernias are seen. Bones: Lumbar degenerative change. No lytic or blastic bony lesions. No compression fractures. Canal stenosis at L3-L4 and L4-L5. IMPRESSION: 1. No renal stones, ureteral stones, or hydronephrosis. 2. Enlarged prostate with mild bladder wall thickening. 3. Very small left inguinal hernia containing fat. 4. Lumbar degenerative change with canal stenosis at L3-L4 and L4-L5. Dictated by: Jamaal Schreiber M.D. on 10/31/2021 at 16:36 Approved by: Jamaal Schreiber M.D. on 10/31/2021 at 16:39
== END ==
PROVIDERS: Family Provider Family Medicine; PCP Family Medicine; Referring Provider Surgery; Visit Provider Surgery
DX: N40.0 Benign prostatic hyperplasia without lower urinary tract symptoms (principal); K40.90 Unilateral inguinal hernia, without obstruction or gangrene, not specified as recurrent; M48.061 Spinal stenosis, lumbar region without neurogenic claudication; M47.816 Spondylosis without myelopathy or radiculopathy, lumbar region; R10.2 Pelvic and perineal pain
CPT/HCPCS: 74176

== ENCOUNTER → 2021-11-16 12:52 | Outpatient (CLI) | payer OTHER, MEDICARE, SELFPAY | PROVIDERS: Family Provider Family Medicine; PCP Family Medicine; Visit Provider Urology | DX: R10.2 Pelvic and perineal pain (principal); N32.89 Other specified disorders of bladder; N13.30 Unspecified hydronephrosis; N42.81 Prostatodynia syndrome; N42.9 Disorder of prostate, unspecified; R30.0 Dysuria; R82.81 Pyuria; N41.9 Inflammatory disease of prostate, unspecified | CPT/HCPCS: 51798; 81002; 87086 ==

== ENCOUNTER → 2022-05-18 11:24 | Outpatient (CLI) | payer OTHER, MEDICARE, SELFPAY ==
[2022-05-18 12:31] LABS: Add Manual Diff / Slide Review NO; Basophils Absolute Auto 0 /uL (0-100); Basophils Percent Auto 0.6 % (0-2); Eosinophils Absolute Auto 100 /uL (0-450); Eosinophils Percent Auto 2.6 % (2-4); Hematocrit 39.2 % (41-53); Hemoglobin 13.4 g/dL (13.5-17.5); Lymphocytes Absolute Auto 800 /uL (1100-4500); Lymphocytes Percent Auto 25.5 % (25-40); Mean Corpuscular HGB Conc 34.1 % (30-36); Mean Corpuscular Hemoglobin 31.2 PG (26-34); Mean Corpuscular Volume 91.5 fL (80-100); Monocytes Absolute Auto 300 /uL (0-900); Monocytes Percent Auto 9.2 % (3-14); Neutrophils Absolute Auto 1900 /uL (1500-7000); Neutrophils Percent Auto 62.1 % (50-75); Platelet Count 222 X10^3/uL (150-400); Red Blood Cell Count 4.28 X10^6/uL (4.5-5.9); Red Cell Distribution Width 13.7 % (11.6-14.8)
[2022-05-18 12:47] LABS: Alanine Aminotransferase 68 IU/L (<50); Albumin 4.2 g/dL (3.5-5.0); Albumin Globulin Ratio 1.4 (1.0-2.8); Alkaline Phosphatase 35 U/L (38-126); Aspartate Aminotransferase 59 IU/L (17-59); BUN Creatinine Ratio 18.6 (6-22); Bilirubin Total 0.5 mg/dL (0.2-1.3); Blood Urea Nitrogen 18 mg/dL (9-20); Calcium 8.9 mg/dL (8.4-10.2); Carbon Dioxide 29 mmol/L (22-32); Chloride 101 mmol/L (98-107); Cholesterol 262 mg/dL (140-199); Estimated Glomerular Filt Rate > 60 mL/min (>60); Glucose 111 mg/dL (80-110); HDL Cholesterol 48 mg/dL (40-60); HEMOLYSIS < 15 (0-50); LDL Cholesterol Calculated 189 mg/dL (<100); Potassium 4.6 mmol/L (3.4-5.1); Sodium 137 mmol/L (137-145); Total Protein 7.2 g/dL (6.3-8.2); Triglycerides 123 mg/dL (35-150)
[2022-05-18 13:20] LABS: TSH w/ Reflex to FT4 1.61 uIU/mL (0.47-4.68)
[2022-05-18 16:02] LABS: Creatinine Urine Random 132.5 mg/dL
[2022-05-18 16:05] LABS: Microalbumi Creatinin Ratio Ur 24.9 ug/mg CR (<30); Microalbumin Urine Random 3.3 mg/dL (0-1.6)
== END ==
PROVIDERS: Family Provider Family Medicine; PCP Family Medicine; Referring Provider Family Medicine; Visit Provider Family Medicine
DX: D64.9 Anemia, unspecified (principal); E03.9 Hypothyroidism, unspecified; E78.2 Mixed hyperlipidemia; I10 Essential (primary) hypertension; Z00.00 Encounter for general adult medical examination without abnormal findings
CPT/HCPCS: 36415; 80053; 80061; 82043; 82570; 84443; 85025

== ENCOUNTER → 2022-08-22 09:29 | Outpatient (CLI) | payer OTHER, MEDICARE, SELFPAY | PROVIDERS: Family Provider Family Medicine; PCP Family Medicine; Visit Provider Nurse Practitioner Family | DX: R10.2 Pelvic and perineal pain (principal); I10 Essential (primary) hypertension | CPT/HCPCS: 87086 ==

== ENCOUNTER → 2022-08-22 09:38 | Outpatient (CLI) | payer OTHER, MEDICARE, SELFPAY ==
[2022-08-22 12:23] LABS: Hematocrit 38.3 % (41-53); Hemoglobin 13.5 g/dL (13.5-17.5); Mean Corpuscular HGB Conc 35.2 % (30-36); Mean Corpuscular Hemoglobin 31.8 PG (26-34); Mean Corpuscular Volume 90.3 fL (80-100); Platelet Count 234 X10^3/uL (150-400); Red Blood Cell Count 4.24 X10^6/uL (4.5-5.9); Red Cell Distribution Width 13.2 % (11.6-14.8); White Blood Cell Count 4.4 X10^3/uL (4.5-11.0)
[2022-08-22 13:03] LABS: Alanine Aminotransferase 49 IU/L (<50); Albumin 4.2 g/dL (3.5-5.0); Albumin Globulin Ratio 1.4 (1.0-2.8); Alkaline Phosphatase 31 U/L (38-126); Aspartate Aminotransferase 46 IU/L (17-59); BUN Creatinine Ratio 22.1 (6-22); Bilirubin Total 0.5 mg/dL (0.2-1.3); Blood Urea Nitrogen 23 mg/dL (9-20); Calcium 9.4 mg/dL (8.4-10.2); Carbon Dioxide 31 mmol/L (22-32); Chloride 99 mmol/L (98-107); Estimated Glomerular Filt Rate > 60 mL/min (>60); Globulin 2.9 g/dL (1.7-4.1); Glucose 104 mg/dL (80-110); HEMOLYSIS < 15 (0-50); Potassium 3.8 mmol/L (3.4-5.1); Sodium 138 mmol/L (137-145); Total Protein 7.1 g/dL (6.3-8.2)
== END ==
PROVIDERS: Family Provider Family Medicine; PCP Family Medicine; Referring Provider Nurse Practitioner Family; Visit Provider Nurse Practitioner Family
DX: R10.2 Pelvic and perineal pain (principal); I10 Essential (primary) hypertension
CPT/HCPCS: 36415; 80053; 85027; 87086

== ENCOUNTER → 2023-08-08 09:23 | Outpatient (CLI) | payer OTHER, MEDICARE, SELFPAY ==
[2023-08-08 09:55] LABS: Add Manual Diff / Slide Review NO; Basophils Absolute Auto 0 /uL (0-100); Basophils Percent Auto 0.4 % (0-2); Eosinophils Absolute Auto 100 /uL (0-450); Eosinophils Percent Auto 3.1 % (2-4); Hematocrit 38.5 % (41-53); Hemoglobin 13.3 g/dL (13.5-17.5); Lymphocytes Absolute Auto 1100 /uL (1100-4500); Lymphocytes Percent Auto 23.5 % (25-40); Mean Corpuscular HGB Conc 34.6 % (30-36); Mean Corpuscular Hemoglobin 32.2 PG (26-34); Mean Corpuscular Volume 93.1 fL (80-100); Monocytes Absolute Auto 400 /uL (0-900); Monocytes Percent Auto 9.5 % (3-14); Neutrophils Absolute Auto 2900 /uL (1500-7000); Neutrophils Percent Auto 63.5 % (50-75); Platelet Count 221 X10^3/uL (150-400); Red Blood Cell Count 4.13 X10^6/uL (4.5-5.9); Red Cell Distribution Width 13.4 % (11.6-14.8); White Blood Cell Count 4.5 X10^3/uL (4.5-11.0)
[2023-08-08 10:23] LABS: Alanine Aminotransferase 47 IU/L (<50); Albumin 4.4 g/dL (3.5-5.0); Albumin Globulin Ratio 1.7 (1.0-2.8); Alkaline Phosphatase 38 U/L (38-126); Aspartate Aminotransferase 45 IU/L (17-59); BUN Creatinine Ratio 15.4 (6-22); Bilirubin Total 0.5 mg/dL (0.2-1.3); Blood Urea Nitrogen 19 mg/dL (9-20); Calcium 8.7 mg/dL (8.4-10.2); Carbon Dioxide 28 mmol/L (22-32); Chloride 107 mmol/L (98-107); Cholesterol 200 mg/dL (140-199); Estimated Glomerular Filt Rate > 60 mL/min (>60); Globulin 2.6 g/dL (1.7-4.1); Glucose 98 mg/dL (80-110); HDL Cholesterol 41 mg/dL (40-60); HEMOLYSIS < 15 (0-50); LDL Cholesterol Calculated 93 mg/dL (<100); Potassium 4.4 mmol/L (3.4-5.1); Sodium 140 mmol/L (137-145); Triglycerides 330 mg/dL (35-150)
[2023-08-08 10:51] LABS: Prostate Specific Antigen Scrn 2.52 ng/mL (0.1-4.0); TSH w/ Reflex to FT4 2.41 uIU/mL (0.47-4.68)
[2023-08-08 11:00] LABS: Creatinine Urine Random 183.94 mg/dL
[2023-08-08 11:08] LABS: Microalbumin Urine Random 2.6 mg/dL (0-1.6)
[2023-08-08 16:49] LABS: Hep C Virus Ab w/Reflex Quant NEGATIVE s/c (NEGATIVE)
[2023-08-09 08:13] LABS: Apolipoprotein B 111 mg/dL (<90)
== END ==
PROVIDERS: Family Provider Family Medicine; PCP Family Medicine; Referring Provider Family Medicine; Visit Provider Family Medicine
DX: Z00.00 Encounter for general adult medical examination without abnormal findings (principal); Z12.5 Encounter for screening for malignant neoplasm of prostate; E03.9 Hypothyroidism, unspecified; I10 Essential (primary) hypertension; D64.9 Anemia, unspecified; E78.2 Mixed hyperlipidemia
CPT/HCPCS: 36415; 80053; 80061; 82043; 82172; 82570; 84443; 85025; 86803; G0103

== ENCOUNTER → 2023-08-20 08:19 | Outpatient (CLI) | payer OTHER, MEDICARE, SELFPAY ==
--- NOTE | 2023-08-20 08:21 | DI.US.S_ITS ---
PROCEDURE: US SOFT TISSUE HEAD AND NECK INDICATIONS: soft mass near right mastoid TECHNIQUE: Real-time scanning was performed of the neck region of interest, with image documentation. COMPARISON: None. FINDINGS: In the region of interest by the right posterior abdominal and, there is a lesion measuring 1.5 x 0.6 x 0.4 cm. This likely represents a lymph node. IMPRESSION: Likely lymph node within the region of interest. A normal fatty hilum is present. If palpable abnormality persists, recommend repeat ultrasound to assess for growth. This may be reactive, metastatic lymph node is felt to be less likely but cannot be excluded. Dictated by: Otilio Salamanca M.D. on 08/20/2023 at 12:01 Approved by: Otilio Salamanca M.D. on 08/20/2023 at 12:03
== END ==
LOC: US 08:21
PROVIDERS: Family Provider Family Medicine; PCP Family Medicine; Referring Provider Family Medicine; Visit Provider Family Medicine
DX: R22.1 Localized swelling, mass and lump, neck (principal)
CPT/HCPCS: 76536

== ENCOUNTER → 2024-09-12 09:11 | Outpatient (CLI) | payer OTHER, MEDICARE, SELFPAY ==
[2024-09-12 10:01] LABS: Creatinine Urine Random 287.25 mg/dL
[2024-09-12 10:04] LABS: Add Manual Diff / Slide Review NO; Basophils Absolute Auto 0 /uL (0-100); Basophils Percent Auto 0.6 % (0-2); Eosinophils Absolute Auto 100 /uL (0-450); Eosinophils Percent Auto 2.9 % (2-4); Hematocrit 37.4 % (41-53); Hemoglobin 13.2 g/dL (13.5-17.5); Lymphocytes Absolute Auto 1300 /uL (1100-4500); Lymphocytes Percent Auto 31.4 % (25-40); Mean Corpuscular HGB Conc 35.4 % (30-36); Mean Corpuscular Hemoglobin 32.4 PG (26-34); Mean Corpuscular Volume 91.6 fL (80-100); Monocytes Absolute Auto 500 /uL (0-900); Monocytes Percent Auto 11.1 % (3-14); Neutrophils Absolute Auto 2300 /uL (1500-7000); Platelet Count 224 X10^3/uL (150-400); Red Blood Cell Count 4.08 X10^6/uL (4.5-5.9); Red Cell Distribution Width 13.6 % (11.6-14.8); White Blood Cell Count 4.2 X10^3/uL (4.5-11.0)
[2024-09-12 10:09] LABS: Microalbumin Urine Random 3.2 mg/dL (0-1.6)
[2024-09-12 10:24] LABS: Alanine Aminotransferase 38 IU/L (<50); Albumin 4.5 g/dL (3.5-5.0); Albumin Globulin Ratio 1.6 (1.0-2.8); Alkaline Phosphatase 32 U/L (38-126); Aspartate Aminotransferase 45 IU/L (17-59); BUN Creatinine Ratio 19.5 (6-22); Bilirubin Total 0.4 mg/dL (0.2-1.3); Blood Urea Nitrogen 22 mg/dL (9-20); Calcium 9.2 mg/dL (8.4-10.2); Carbon Dioxide 28 mmol/L (22-32); Chloride 102 mmol/L (98-107); Cholesterol 194 mg/dL (140-199); Estimated Glomerular Filt Rate > 60 mL/min (>60); Globulin 2.9 g/dL (1.7-4.1); Glucose 111 mg/dL (70-99); HDL Cholesterol 39 mg/dL (40-60); HEMOLYSIS < 15 (0-50); LDL Cholesterol Calculated 109 mg/dL (<100); Sodium 139 mmol/L (137-145); Total Protein 7.4 g/dL (6.3-8.2); Triglycerides 232 mg/dL (35-150)
[2024-09-12 10:29] LABS: Hemoglobin A1C% w Est Avg Glu 5.2 % (4.0-6.0)
[2024-09-12 10:54] LABS: Prostate Specific Antigen Scrn 2.28 ng/mL (0.1-4.0); TSH w/ Reflex to FT4 3.53 uIU/mL (0.47-4.68)
[2024-09-13 08:12] LABS: Apolipoprotein B 109 mg/dL (<90)
== END ==
PROVIDERS: Family Provider Family Medicine; PCP Family Medicine; Referring Provider Family Medicine; Visit Provider Family Medicine
DX: Z12.5 Encounter for screening for malignant neoplasm of prostate (principal); I10 Essential (primary) hypertension; E03.9 Hypothyroidism, unspecified; D64.9 Anemia, unspecified; E78.2 Mixed hyperlipidemia
CPT/HCPCS: 36415; 80053; 80061; 82043; 82172; 82570; 83036; 84443; 85025; G0103

== ENCOUNTER → 2024-10-17 08:53 | Outpatient (CLI) | payer OTHER, MEDICARE, SELFPAY ==
[2024-10-17 11:09] LABS: Add Manual Diff / Slide Review NO; Hematocrit 37.4 % (41-53); Hemoglobin 13.0 g/dL (13.5-17.5); Lymphocytes Absolute Auto 1200 /uL (1100-4500); Mean Corpuscular HGB Conc 34.7 % (30-36); Mean Corpuscular Hemoglobin 31.9 PG (26-34); Mean Corpuscular Volume 91.9 fL (80-100); Platelet Count 205 X10^3/uL (150-400)
[2024-10-17 11:56] LABS: HEMOLYSIS < 15 (0-50); Iron 90 ug/dL (49-181)
[2024-10-17 12:09] LABS: Percent Iron Saturation 29 % (20-50); Total Iron Binding Capacity 313 ug/dL (261-462); Transferrin 247 mg/dL (206-381)
[2024-10-17 13:03] LABS: Folate 14.0 ng/mL (2.76-20.0)
[2024-10-20 14:09] LABS: Alpha-1 Globulin, Ur 4.3 % (.)
[2024-10-21 13:11] LABS: Albumin 3.9 g/dL (2.9-4.4); Alpha-1-Globulin 0.2 g/dL (0.0-0.4); Alpha-2-Globulin 0.6 g/dL (0.4-1.0); Gamma Globulin 1.0 g/dL (0.4-1.8)
== END ==
PROVIDERS: Family Provider Family Medicine; PCP Family Medicine; Referring Provider Family Medicine; Visit Provider Family Medicine
DX: D64.9 Anemia, unspecified (principal); E03.9 Hypothyroidism, unspecified; D72.819 Decreased white blood cell count, unspecified; D48.5 Neoplasm of uncertain behavior of skin
CPT/HCPCS: 36415; 82746; 83540; 83550; 84155; 84156; 84165; 84166; 85025